=== PATIENT | male | born 1940 | race Caucasian/White ===

== ENCOUNTER 2020-07-18 11:46 | Inpatient (IN) | payer MEDICARE, SELFPAY ==
[2020-07-18] VITALS (19 sets, daily range): BP systolic 145–187; BP diastolic 89–113; PULSE 99–115; RESP 14–28; TEMP 35.1–36.4; O2SAT 85–99; BMI 14.8
--- NOTE | ~2020-07-18 | XR_ITS ---
EXAMINATION: XR CHEST CLINICAL INFORMATION: Shortness of breath COMPARISON: Previous chest x-ray March 2018 TECHNIQUE: Frontal view of the chest was obtained. FINDINGS: The cardiac and mediastinal contours are normal. The lungs are well inflated. There is increased density in the right lateral midlung. It is uncertain whether this is related to overlying soft tissues or could represent an area of faint airspace disease or pneumonitis. The lungs are otherwise clear. There is blunting of both costophrenic angles similar to previous exam probably representing chronic pleural thickening. There is no definite pleural effusion. There is no pneumothorax. There are degenerative changes of the spine. XR/XR chest 1V IMPRESSION: Hyperinflation. Increased density in the peripheral right mid lung, question representing overlying soft tissues versus a pneumonitis or small pneumonia.
--- NOTE | 2020-07-18 12:00 | ECG_ITS ---
Test Reason : SOB Blood Pressure : / mmHG Vent. Rate : 126 BPM Atrial Rate : 100 BPM P-R Int : 162 ms QRS Dur : 104 ms QT Int : 372 ms P-R-T Axes : 097 097 030 degrees QTc Int : 538 ms Artifact in tracing Normal sinus rhythm Right atrial enlargement Rightward axis Pulmonary disease pattern Abnormal ECG When compared with ECG of 11-APR-2018 09:32, No significant changes seen Referred By: Kenya Lilly Electronically Signed By:TIGRE MINOR
[2020-07-18] MEDS: Albuterol Sulfate (0.083%) 2.5 MG/3 ML VIAL.NEB 10 MG INHALE (12:02)
[2020-07-18] MEDS: methylPREDNISolone Sod Succ 125 MG/2 ML VIAL IVPUSH (12:16)
[2020-07-18] MEDS: Magnesium Sulfate/H2O 2 GM/50 ML PIGGYBACK IV (12:16)
--- NOTE | 2020-07-18 12:25 | ED_ITS ---
HPI - SOB/Dyspnea General Chief Complaint: Dyspnea Stated Complaint: sob Time Seen by Provider: 07/18/20 11:57 Source: patient and EMS Mode of arrival: EMS Limitations: no limitations History of Present Illness HPI Narrative: This is a 80-year-old male came in by EMS for evaluation of severe shortness of breath and possible COPD exacerbation. Patient with history of COPD using 3 L of supplemental oxygen at home 08/10, patient started to have shortness of breath earlier today and gradually gotten worse despite using his own medication at home, called 911 on EMS arrival at the scene patient was with work of breathing, O2 sat was in the 80s%, patient was given DuoNeb and 125 mg of Solu-Medrol by EMS with partial but temporary improvement of patient's symptoms, on arrival patient was moved to the ED stretcher when he started to have another exacerbation of shortness of breath, patient was talking in a few word sentences, in apparent respiratory distress. Patient is a former smoker Patient had this episode multiple times in the past according to the patient he required no intubations in the past. Confirm to no exposure to sick contacts or exposure to COVID infection, no recent travel, no lower extremity swelling, no history of PE/DVT. MD elicited complaint: shortness of breath Pertinent past history: COPD Onset (ago): hour(s) (5) Timing: intermittent and progressively worsening Severity: severe Exacerbating factors: nothing Relieving factors: other Known history of: COPD Related Data Home Medications Medication Instructions Recorded Confirmed fluticasone propion-salmeterol 1 inh INHALATION BID 07/18/20 07/18/20 [Wixela Inhub] tiotropium bromide [Spiriva with 1 cap INHALATION DAILY 07/18/20 07/18/20 HandiHaler] Allergies Allergy/AdvReac Type Severity Reaction Status Date / Time No Known Allergies Allergy Verified 07/18/20 11:53 [No Known Allergies*] Review of Systems Review of Systems: All other systems are reviewed and are negative Constitutional: Reports as per HPI and Reports no additional constitutional complaints Eyes: Reports as per HPI and Reports no additional eye complaints Reports system reviewed and no additional complaints, except as documented Cardiovascular: Reports as per HPI and Reports no additional cardiovascular complaints Respiratory: Reports as per HPI and Reports no additional respiratory complaints Gastrointestinal: Reports as per HPI and Reports no additional gastrointestinal complaints Genitourinary: Reports no additional female genitourinary complaints Musculoskeletal: Reports no additional musculoskeletal complaints Skin/Breast: Reports system reviewed and no additional complaints, except as docu Psychiatric: Reports no additional psychiatric complaints Endocrine: Reports no additional endocrine complaints Hematologic/Lymphatic: Reports no additional hematologic/lymphatic complaints Allergic/Immunologic: Reports no additional allergic/immunologic complaints Reports system reviewed and no additional complaints, except as documented and Reports Abnormal speech present [facility] Past Medical History Medical History COPD (chronic obstructive pulmonary disease) Inguinal hernia Social History Social History Smoking Status: Former smoker Advance Directives: No Advance Directives Information Provided: Yes Physical Exam Vital Signs: Vital Signs: Last Vital Signs Temp 97.6 F 07/18/20 11:54 Pulse 114 H 07/18/20 13:58 Resp 16 07/18/20 13:58 BP 163/108 H 07/18/20 13:58 Pulse Ox 91 L 07/18/20 13:58 Oxygen Flow Rate 4 07/18/20 11:54 Body Mass Index 14.8 Vital signs have been reviewed as appeared to be correct. Blood pressure elevated. Heart rate normal. Respiration rate elevated. Temperature normal. Oxygen saturation normal. Appearance: Alert. Oriented X3. Pain acute respiratory distress. Head: Normal external exam. Normocephalic. Atraumatic. No Weiner signs noted. No raccoon eyes noted Eyes: PERRLA. EOMI. Conjunctiva and sclera normal. Eyelids normal. ENT: TM's Normal. Pharynx normal. Uvula midline. Moist mucous membranes. No trismus noted. No drooling noted. No muffled voice noted. Neck: Normal inspection. Neck supple. FROM. No adenopathy. Thyroid Normal. No meningeal signs. No neck mass noted. CVS: Normal heart rate and rhythm. Heart sound normal. No murmurs noted. Pulses normal throughout. Respiratory: Mild to moderate acute respiratory distress, with intercostal retraction, diffuse decrease breathing sound bilaterally, diffuse expiratory wheezing. Abdomen: Soft and nontender. Bowel sounds normal in all 4 quadrants. No distention noted. No organomegaly noted. No visible injury noted. Back: No CVA tenderness. Full range of motion noted. Skin: Skin warm and dry. Normal skin color. Normal skin turgor. No rashes/lesions/lacerations noted. Extremities: No lower extremity edema. Extremities exhibit normal range of motion. Extremities nontender. Neuro: Oriented X 3. No motor deficit. No sensory deficit. Reflexes normal. Course Course Course Narrative: 80-year-old male with history of COPD came in with COPD exacerbation and hypoxia, several bronchodilator via neb was tried and Solu- Medrol with magnesium with no improvement patient still appearing in respiratory distress will try BiPAP. Will start on empiric antibiotics ceftriaxone and Zithromax. Reevaluation(s) Reevaluation #1: Patient on BiPAP machine, appear more stable and less respiratory distress, will consider ICU admission. Time: 14:01 MDM - SOB/Dyspnea Lab Data Attestation: I reviewed the patient's lab results. Result diagrams: 07/18/20 13:06 07/18/20 13:06 Labs: Lab Results 07/18/20 07/18/20 07/18/20 Range/Units 12:28 13:06 13:06 WBC 7.4 (4.8-10.8) X10*3/uL RBC 4.27 L (4.60-5.80) X10*6/uL Hgb 13.0 L (14.0-18.0) g/dl Hct 39.2 L (42-52) % MCV 91.8 (80-98) fL MCH 30.4 (27.0-33.0) pg MCHC 33.2 (31.0-36.0) g/dl RDW 13.2 (11.0-16.0) % Plt Count 365 (160-400) X10*3/uL MPV 9.7 (9.4-12.4) fL Immature Gran % (Auto) 0.3 (0.0-0.4) % Neut % (Auto) 80.4 H (45-73) % Lymph % (Auto) 11.4 L (20-40) % [place] % (Auto) 7.6 (2-11) % Eos % (Auto) 0.0 (0-4) % Baso % (Auto) 0.3 (0-2) % Lymph # (Auto) 0.8 L (1.2-4.9) X10*3/uL [place] # (Auto) 0.6 (0.1-1.2) X10*3/uL Eos # (Auto) 0.0 (0.0-0.4) X10*3/uL Baso # (Auto) 0.0 (0.0-0.2) X10*3/uL Abs Immat Gran (auto) 0.02 (0.00-0.03) X10*3/uL Absolute Neuts (auto) 5.9 (2.0-8.3) X10*3/uL Absolute Nucleated RBC 0.000 (0.0-0.012) X10*3/uL Nucleated RBC % (auto) 0.0 (0.0-0.2) /100WBC O2 Saturation 99.0 % ABG pH at Pt Temp 7.34 L (7.35-7.45) ABG pH (Temp Correct) 7.35 (7.35-7.45) ABG pCO2 at Pt Temp 66 H* (32-45) mmHg ABG pCO2 (Temp Corrct 65 H* (32-45) mmHg ABG pO2 at Pt Temp 157 H (83-108) mmHg ABG pO2 (Temp Correct 153 H (83-108) ABG HCO3 36 H (22-26) mmol/L ABG Base Excess (Actual) 8.5 mmol/L Sodium 134 L (135-145) mmol/L Potassium 4.2 (3.3-5.1) mmol/L Chloride 92 L (96-108) mmol/L Carbon Dioxide 34 H (22-29) mmol/L Anion Gap 12 (12-20) BUN 17 H (9-16) mg/dL Creatinine 0.68 (0.5-1.4) mg/dL Estim Creat Clear Calc 56.5 Estimated GFR > 60 Random Glucose 122 H (60-115) mg/dL Lactic Acid (0.5-2.0) mmol/L Calcium 9.4 (8.4-10.2) mg/dL Total Bilirubin 0.6 (0.0-1.0) mg/dL Direct Bilirubin 0.2 (0.0-0.5) mg/dL AST 34 (5-37) U/L ALT 25 (0-40) U/L Alkaline Phosphatase 114 (39-117) U/L Troponin I High Sens (<3.5-35.0) ng/L B-Natriuretic Peptide (<100) pg/mL Total Protein 6.9 (6.5-8.0) g/dL Albumin 4.2 (3.5-5.0) g/dL Lipase 17 (8-78) U/L 07/18/20 07/18/20 Range/Units 13:06 13:06 WBC (4.8-10.8) X10*3/uL RBC (4.60-5.80) X10*6/uL Hgb (14.0-18.0) g/dl Hct (42-52) % MCV (80-98) fL MCH (27.0-33.0) pg MCHC (31.0-36.0) g/dl RDW (11.0-16.0) % Plt Count (160-400) X10*3/uL MPV (9.4-12.4) fL Immature Gran % (Auto) (0.0-0.4) % Neut % (Auto) (45-73) % Lymph % (Auto) (20-40) % [place] % (Auto) (2-11) % Eos % (Auto) (0-4) % Baso % (Auto) (0-2) % Lymph # (Auto) (1.2-4.9) X10*3/uL [place] # (Auto) (0.1-1.2) X10*3/uL Eos # (Auto) (0.0-0.4) X10*3/uL Baso # (Auto) (0.0-0.2) X10*3/uL Abs Immat Gran (auto) (0.00-0.03) X10*3/uL Absolute Neuts (auto) (2.0-8.3) X10*3/uL Absolute Nucleated RBC (0.0-0.012) X10*3/uL Nucleated RBC % (auto) (0.0-0.2) /100WBC O2 Saturation % ABG pH at Pt Temp (7.35-7.45) ABG pH (Temp Correct) (7.35-7.45) ABG pCO2 at Pt Temp (32-45) mmHg ABG pCO2 (Temp Corrct (32-45) mmHg ABG pO2 at Pt Temp (83-108) mmHg ABG pO2 (Temp Correct (83-108) ABG HCO3 (22-26) mmol/L ABG Base Excess (Actual) mmol/L Sodium (135-145) mmol/L Potassium (3.3-5.1) mmol/L Chloride (96-108) mmol/L Carbon Dioxide (22-29) mmol/L Anion Gap (12-20) BUN (9-16) mg/dL Creatinine (0.5-1.4) mg/dL Estim Creat Clear Calc Estimated GFR Random Glucose (60-115) mg/dL Lactic Acid 1.1 (0.5-2.0) mmol/L Calcium (8.4-10.2) mg/dL Total Bilirubin (0.0-1.0) mg/dL Direct Bilirubin (0.0-0.5) mg/dL AST (5-37) U/L ALT (0-40) U/L Alkaline Phosphatase (39-117) U/L Troponin I High Sens < 3.5 (<3.5-35.0) ng/L B-Natriuretic Peptide 57 (<100) pg/mL Total Protein (6.5-8.0) g/dL Albumin (3.5-5.0) g/dL Lipase (8-78) U/L Imaging Data Chest x-ray: Radiologist's impression: Hyperinflation. Increased density in the peripheral right mid lung, question representing overlying soft tissues versus a pneumonitis or small pneumonia. Critical Care Time Critical Care Time Critical Care Time: Yes Total Critical Care Time: 60 Attestation: I spent 60 minutes providing critical care service to the patient, this including time spent at the bedside to evaluate the patient, reassess the patient, monitoring vital signs, review labs, and radiographic studies, counseling the patient/family, discussing the case with consultants, disposition the patient. Discharge Plan Discharge Clinical Impression: Acute exacerbation of chronic obstructive airways disease, Hypoxia Patient Disposition: Admitted As Inpatient
[2020-07-18 12:37] LABS: ABG Refer to POC result
[2020-07-18 12:37] LABS: ABG Base Excess 8.5 mmol/L; ABG HCO3 36 mmol/L (22-26); ABG pCO2 66 mmHg (32-45); ABG pCO2 TC 65 mmHg (32-45); ABG pH 7.34 (7.35-7.45); ABG pH TC 7.35 (7.35-7.45); ABG pO2 157 mmHg (83-108); ABG pO2 TC 153 (83-108)
[2020-07-18 13:14] LABS: MANUAL DIFF FLAG NO
[2020-07-18 13:20] LABS: Basophils Percent Auto 0.3 % (0-2); Hematocrit 39.2 % (42-52); Imm Gran Abs Auto 0.02 X10*3/uL (0.00-0.03); Imm Gran Pct Auto 0.3 % (0.0-0.4); Lymphocytes Absolute Auto 0.8 X10*3/uL (1.2-4.9); Lymphocytes Percent Auto 11.4 % (20-40); Mean Corpuscular HGB Conc 33.2 g/dl (31.0-36.0); Mean Corpuscular Hemoglobin 30.4 pg (27.0-33.0); Mean Corpuscular Volume 91.8 fL (80-98); Mean Platelet Volume 9.7 fL (9.4-12.4); Monocytes Absolute Auto 0.6 X10*3/uL (0.1-1.2); Monocytes Percent Auto 7.6 % (2-11); Neutrophils Absolute Auto 5.9 X10*3/uL (2.0-8.3); Neutrophils Percent Auto 80.4 % (45-73); Platelet Count 365 X10*3/uL (160-400); Red Blood Count 4.27 X10*6/uL (4.60-5.80); Red Cell Distribution Width 13.2 % (11.0-16.0); White Blood Count 7.4 X10*3/uL (4.8-10.8)
[2020-07-18 13:38] LABS: Lactic Acid 1.1 mmol/L (0.5-2.0)
[2020-07-18 13:42] LABS: Alanine Aminotransferase 25 U/L (0-40); Albumin Level 4.2 g/dL (3.5-5.0); Alkaline Phosphatase 114 U/L (39-117); Anion Gap 12 (12-20); Aspartate Amino Transferase 34 U/L (5-37); Bilirubin Direct 0.2 mg/dL (0.0-0.5); Bilirubin Total 0.6 mg/dL (0.0-1.0); Blood Urea Nitrogen 17 mg/dL (9-16); Calcium 9.4 mg/dL (8.4-10.2); Carbon Dioxide 34 mmol/L (22-29); Chloride 92 mmol/L (96-108); Creatinine Clr Calc Pharmacy 56.5; Estimated Glomerular Filt Rate > 60; Glucose Random 122 mg/dL (60-115); Lipase 17 U/L (8-78); Potassium 4.2 mmol/L (3.3-5.1); Sodium 134 mmol/L (135-145); Total Protein 6.9 g/dL (6.5-8.0)
[2020-07-18 13:49] LABS: B Type Natriuretic Peptide 57 pg/mL (<100); Troponin-I High Sensitivity < 3.5 ng/L (<3.5-35.0)
[2020-07-18 14:15] LABS: COVID-19 Test Negative (Negative); IDNOW Serial# 08D9AD1C
--- NOTE | 2020-07-18 14:15 | PC.NURSE ---
Pt alert and oriented, skin pink, warm, dry. Pt on 25% Bipap, O2 sat 95%. Use of accessory muscles with breathing. 2+ Bilateral foot edema. Pt on 2L O2 NC at home. Pt awaiting labs at this time.
[2020-07-18 14:25] LABS: Glucose Urine UA NEG (NEG); Leukocyte Esterase Urine NEG (NEG); Nitrite Urine NEG (NEG); Urine Blood NEG (NEG); Urine Ketones NEG (NEG); Urine Protein NEG (NEG-TRACE)
[2020-07-18 14:27] LABS: Appearance Urine CLEAR; Color Urine YELLOW
[2020-07-18] MEDS: cefTRIAXone sodium 1 GM in 0.9 % Sodium Chloride 50 ML IV (15:00)
[2020-07-18] MEDS: 0.9 % Sodium Chloride 1,000 ML 999 ML IVCONT (15:01)
[2020-07-18] MEDS: Azithromycin 500 MG TABLET PO (15:05)
--- NOTE | 2020-07-18 15:05 | PM.CCHP ---
History of Present Illness Date of Service: 07/18/20 Chief Complaint: Dyspnea 80-year-old male former smoker and inhaler dependent COPD with increased work of breathing chest tightness and possible chills COVID negative but never vaccinated No cardiovascular history not treated for hypertension Currently on BiPAP and tolerating comfortably but still feels that work of breathing is excessive with sinus tachycardia at rate 114 acute hypertension at 163/108 but when he presented by blood gas he was an acute on chronic hypoxic and hypercarbic respiratory failure and chest x-ray with very severe bilateral COPD and EKG showing right axis with right atrial dilatation and clockwise rotation consistent with probable predominant right right ventricular dysfunction Review of Systems Review of Systems: Yes all other systems are reviewed and are negative [facility] Past Medical History Medical History COPD (chronic obstructive pulmonary disease) Inguinal hernia Social History Social History Smoking Status: Former smoker Advance Directives: No Advance Directives Information Provided: Yes Meds Allergies Allergy/AdvReac Type Severity Reaction Status Date / Time No Known Allergies Allergy Verified 07/18/20 11:53 [No Known Allergies*] Active Medications: Current Medications Generic Name Dose Route Start Last Admin Trade Name Freq PRN Reason Stop Dose Admin Albuterol/Ipratropium 3 ml 07/18/20 15:00 Albuterol/Iprat 2.5/0.5mg 3 Ml Ampul.Neb INHALE 6XD [facility] Sodium Chloride 1,000 mls @ 999 mls/hr 07/18/20 14:15 07/18/20 15:01 Ns IVCONT 07/18/20 15:15 999 mls/hr .Q1H1M [facility] Administration Doxycycline Hyclate 100 mg/ 250 mls @ 166.67 mls/hr 07/18/20 16:30 Sodium Chloride IV BID@0630,1630 [facility] Ceftriaxone Sodium 1 gm/ 50 mls @ 100 mls/hr 07/18/20 15:00 Sodium Chloride IV Q12H [facility] Methylprednisolone Sodium Succinate 40 mg 07/18/20 17:00 Methylprednisolone Sod Succ 40 Mg/Ml Vial IVPUSH QID [facility] Pharmacy Consult 1 each 07/18/20 11:59 Consult Rx Perform Med Rec MISCELLANE ONCE PRN Consult order Home Medications Medication Instructions Recorded Confirmed Last Taken Type fluticasone propion-salmeterol 1 inh INHALATION BID 07/18/20 07/18/20 Unknown History [Wixela Inhub] tiotropium bromide [Spiriva with 1 cap INHALATION DAILY 07/18/20 07/18/20 Unknown History HandiHaler] Physical Exam Vital Signs: Vital Signs: Last Vital Signs Temp 97.6 F 07/18/20 11:54 Pulse 114 H 07/18/20 13:58 Resp 16 07/18/20 13:58 BP 163/108 H 07/18/20 13:58 Pulse Ox 91 L 07/18/20 13:58 Oxygen Flow Rate 4 07/18/20 11:54 Body Mass Index 14.8 Currently mild respiratory distress without accessory muscle use Awake and alert hard of hearing but oriented nonfocal neurologically Bedside echo showing mild aortic valvular sclerosis but no stenosis globally normal systolic wall motion of the left ventricle mild right ventricular dilatation borderline inferior vena cava with less than 50% inspiratory collapse Abdomen benign Chest wall deformity with considerable pectus Results Labs CBC and Chem 7: 07/18/20 13:06 07/18/20 13:06 Labs: Laboratory Results - last 24 hr 07/18/20 07/18/20 07/18/20 12:28 13:06 13:06 MCV 91.8 MCH 30.4 MCHC 33.2 RDW 13.2 Plt Count 365 MPV 9.7 Immature Gran % (Auto) 0.3 Neut % (Auto) 80.4 H Lymph % (Auto) 11.4 L [place] % (Auto) 7.6 Eos % (Auto) 0.0 Baso % (Auto) 0.3 Lymph # (Auto) 0.8 L [place] # (Auto) 0.6 Eos # (Auto) 0.0 Baso # (Auto) 0.0 Abs Immat Gran (auto) 0.02 Absolute Neuts (auto) 5.9 Absolute Nucleated RBC 0.000 Nucleated RBC % (auto) 0.0 O2 Saturation 99.0 ABG pH at Pt Temp 7.34 L ABG pH (Temp Correct) 7.35 ABG pCO2 at Pt Temp 66 H* ABG pCO2 (Temp Corrct 65 H* ABG pO2 at Pt Temp 157 H ABG pO2 (Temp Correct 153 H ABG HCO3 36 H ABG Base Excess (Actual) 8.5 Anion Gap 12 Estim Creat Clear Calc 56.5 Estimated GFR > 60 Random Glucose 122 H Lactic Acid Calcium 9.4 Total Bilirubin 0.6 Direct Bilirubin 0.2 AST 34 ALT 25 Alkaline Phosphatase 114 Troponin I High Sens B-Natriuretic Peptide Total Protein 6.9 Albumin 4.2 Lipase 17 Urine Color Urine Appearance Urine pH Ur Specific [place] Urine Protein Urine Glucose (UA) Urine Ketones Urine Blood Urine Nitrite Ur Leukocyte Esterase COVID-19 ([facility]ANDY) COVID-19 Clin Com 07/18/20 07/18/20 07/18/20 13:06 13:06 13:06 MCV MCH MCHC RDW Plt Count MPV Immature Gran % (Auto) Neut % (Auto) Lymph % (Auto) [place] % (Auto) Eos % (Auto) Baso % (Auto) Lymph # (Auto) [place] # (Auto) Eos # (Auto) Baso # (Auto) Abs Immat Gran (auto) Absolute Neuts (auto) Absolute Nucleated RBC Nucleated RBC % (auto) O2 Saturation ABG pH at Pt Temp ABG pH (Temp Correct) ABG pCO2 at Pt Temp ABG pCO2 (Temp Corrct ABG pO2 at Pt Temp ABG pO2 (Temp Correct ABG HCO3 ABG Base Excess (Actual) Anion Gap Estim Creat Clear Calc Estimated GFR Random Glucose Lactic Acid 1.1 Calcium Total Bilirubin Direct Bilirubin AST ALT Alkaline Phosphatase Troponin I High Sens < 3.5 B-Natriuretic Peptide 57 Total Protein Albumin Lipase Urine Color Urine Appearance Urine pH Ur Specific [place] Urine Protein Urine Glucose (UA) Urine Ketones Urine Blood Urine Nitrite Ur Leukocyte Esterase COVID-19 ([facility]ANDY) Negative COVID-19 Clin Com See Note 07/18/20 14:14 MCV MCH MCHC RDW Plt Count MPV Immature Gran % (Auto) Neut % (Auto) Lymph % (Auto) [place] % (Auto) Eos % (Auto) Baso % (Auto) Lymph # (Auto) [place] # (Auto) Eos # (Auto) Baso # (Auto) Abs Immat Gran (auto) Absolute Neuts (auto) Absolute Nucleated RBC Nucleated RBC % (auto) O2 Saturation ABG pH at Pt Temp ABG pH (Temp Correct) ABG pCO2 at Pt Temp ABG pCO2 (Temp Corrct ABG pO2 at Pt Temp ABG pO2 (Temp Correct ABG HCO3 ABG Base Excess (Actual) Anion Gap Estim Creat Clear Calc Estimated GFR Random Glucose Lactic Acid Calcium Total Bilirubin Direct Bilirubin AST ALT Alkaline Phosphatase Troponin I High Sens B-Natriuretic Peptide Total Protein Albumin Lipase Urine Color YELLOW Urine Appearance CLEAR Urine pH 7.0 Ur Specific [place] 1.020 Urine Protein NEG Urine Glucose (UA) NEG Urine Ketones NEG Urine Blood NEG Urine Nitrite NEG Ur Leukocyte Esterase NEG COVID-19 ([facility]Y) COVID-19 Clin Com Imaging Radiologist's Impressions: Impressions Chest X-Ray 07/18/20 11:59 IMPRESSION: Hyperinflation. Increased density in the peripheral right mid lung, question representing overlying soft tissues versus a pneumonitis or small pneumonia. Assessment and Plan (1) Acute exacerbation of chronic obstructive airways disease: Status: Acute (2) Acute on chronic respiratory failure with hypoxia and hypercapnia: Status: Acute Will maintain BiPAP and combination of steroids as well as inhaled bronchodilators cover him for community-acquired infection to include doxycycline
[2020-07-18] MEDS: Albuterol/Iprat 2.5/0.5MG 3 ML AMPUL.NEB INHALE ×2 (15:18→20:14)
--- NOTE | 2020-07-18 15:31 | PC.NURSE ---
RT at bedside pt taken off BIPAP and back on 3lpm via nc (baseline home 02 amt) and sat up to 97%, receiving updraft at this time. Medicated as charted. Work of breathing increases with any exertion.
[2020-07-18] MEDS: Heparin Sodium,Porcine 5,000 UNIT/ML VIAL 5000 UNIT SUBCUT ×2 (17:19→23:50)
[2020-07-18] MEDS: Doxycycline Hyclate 100 MG in 0.9 % Sodium Chloride 250 ML 166.67 MG IV (17:22)
[2020-07-18] MEDS: Dextrose 5 % and Lactated Ring 1,000 ML 50 ML IVCONT (19:54)
[2020-07-18] MEDS: fentaNYL citrate/PF 100 MCG/2 ML VIAL 50 MCG IVPUSH ×2 (19:55→23:50)
[2020-07-18] MEDS: methylPREDNISolone Sod Succ 40 MG/ML VIAL IVPUSH (20:01)
[2020-07-18] MEDS: Famotidine/PF 20 MG/2 ML VIAL IVPUSH (20:01)
[2020-07-18 21:58] LABS: VBG Base Excess 5.4 mmol/L; VBG HCO3 33 mmol/L (22-26); VBG pCO2 61 mmHg; VBG pH 7.33 (7.32-7.43); VBG pO2 37 mmHg
[2020-07-18 22:01] LABS: Venous Blood Gas Refer to POC result
[2020-07-19] VITALS (30 sets, daily range): BP systolic 115–184; BP diastolic 69–109; PULSE 91–112; RESP 10–25; TEMP 35.6–36.7; O2SAT 88–100; BMI 16.2
[2020-07-19] MEDS: Albuterol/Iprat 2.5/0.5MG 3 ML AMPUL.NEB INHALE ×6 (00:45→19:29)
[2020-07-19] MEDS: cefTRIAXone sodium 1 GM in 0.9 % Sodium Chloride 50 ML IV ×2 (02:17→14:09)
[2020-07-19] MEDS: fentaNYL citrate/PF 100 MCG/2 ML VIAL 50 MCG IVPUSH ×2 (02:29→05:24)
[2020-07-19 05:16] LABS: VBG Base Excess 6.9 mmol/L; VBG HCO3 32 mmol/L (22-26); VBG pCO2 51 mmHg; VBG pH 7.41 (7.32-7.43); VBG pO2 46 mmHg
[2020-07-19] MEDS: Doxycycline Hyclate 100 MG in 0.9 % Sodium Chloride 250 ML 166.67 MG IV ×2 (05:24→17:20)
[2020-07-19 05:26] LABS: Venous Blood Gas Refer to POC result
[2020-07-19 05:46] LABS: Hematocrit 36.1 % (42-52); Hemoglobin 12.1 g/dl (14.0-18.0); Imm Gran Abs Auto 0.02 X10*3/uL (0.00-0.03); Imm Gran Pct Auto 0.4 % (0.0-0.4); Lymphocytes Absolute Auto 0.4 X10*3/uL (1.2-4.9); Lymphocytes Percent Auto 7.4 % (20-40); MANUAL DIFF FLAG SCAN; Mean Corpuscular HGB Conc 33.5 g/dl (31.0-36.0); Mean Corpuscular Hemoglobin 30.6 pg (27.0-33.0); Mean Corpuscular Volume 91.4 fL (80-98); Monocytes Absolute Auto 0.3 X10*3/uL (0.1-1.2); Monocytes Percent Auto 6.2 % (2-11); Neutrophils Absolute Auto 4.4 X10*3/uL (2.0-8.3); Platelet Count 343 X10*3/uL (160-400); Red Blood Count 3.95 X10*6/uL (4.60-5.80); Red Cell Distribution Width 13.2 % (11.0-16.0); SCAN SMEAR FLAG 1; White Blood Count 5.1 X10*3/uL (4.8-10.8)
[2020-07-19 05:53] LABS: INTERNATIONAL NORM RATIO 1.1 (0.9-1.1); Prothrombin Time 12.7 SEC (10.8-13.0)
[2020-07-19 06:06] LABS: Partial Thromboplastin Time 58.2 SEC (24.1-38.0)
[2020-07-19 06:10] LABS: Anion Gap 11 (12-20); Blood Urea Nitrogen 18 mg/dL (9-16); Calcium 9.1 mg/dL (8.4-10.2); Carbon Dioxide 33 mmol/L (22-29); Chloride 96 mmol/L (96-108); Creatinine Clr Calc Pharmacy 55.6; Estimated Glomerular Filt Rate > 60; Glucose Random 141 mg/dL (60-115); Magnesium 2.1 mg/dL (1.6-2.6); Phosphorus 3.9 mg/dL (2.7-4.5); Potassium 4.6 mmol/L (3.3-5.1); Sodium 135 mmol/L (135-145)
--- NOTE | 2020-07-19 06:15 | PC.NURSE ---
Pt sbp ranging from 140s-170s; asymptomatic-PA aware, VSS. Pt alert and oriented x 3, able to make needs known. P tolerating bipap well, fio2 titrated up to 40%, prn fentanyl given per emar for increased wob. Pt using urinal, SR/ST on tele. Redness noted on coccyx, barrier cream applied, repo q2hr with occasional assistance, prevalon mattress used.
[2020-07-19 07:20] LABS: SLIDE REVIEW VERIFIED
[2020-07-19] MEDS: methylPREDNISolone Sod Succ 40 MG/ML VIAL IVPUSH ×4 (08:25→21:12)
[2020-07-19] MEDS: Heparin Sodium,Porcine 5,000 UNIT/ML VIAL 5000 UNIT SUBCUT ×3 (08:25→22:44)
[2020-07-19] MEDS: Famotidine/PF 20 MG/2 ML VIAL IVPUSH ×2 (08:25→21:12)
[2020-07-19 10:20] LABS: Venous Blood Gas Refer to POC result
--- NOTE | 2020-07-19 11:44 | MHC.CLN ---
RE: CONSULT PT IS MODERATELY MALNOURISHED PT WITH MILDLY DEPLETED SUBCUTANEOUS FAT WITH MODERATELY DEPLETED MUSCLE MASS, BMI 16 WT TYPICALLY BELOW IBW RANGE PER PT; NO SIGNIFICANT WT CHANGE DIET RX: REGULAR-APPROPRIATE PT IS EATING AND PLACING ORDER WITH GSR UPON INTERVIEW RECOMMEND ADDING ENSURE BID (PT PREFERS VANILLA) TO INCREASE KCALS SUPPLEMENT TO PROVIDE 700KCALS, 40G PROTEIN SEE ALSO CLINICAL NUTRITION ASSESSMENT
--- NOTE | 2020-07-19 11:45 | P.PNCC_ITS ---
Subjective Subjective Date of Service: 07/19/20 Interval History: 80-year-old male with background history of COPD presented with dyspnea and acute on chronic hypercarbic and hypoxic respiratory failure requiring BiPAP support overnight while we administered aggressive bronchodilator therapy steroids and empiric antibiotic coverage new no for community-acquired infection but no apparent infiltrate on chest x-ray My bedside echo showed globally normal systolic wall motion of the left ve ntricle and no primary valve or pericardial disease Physical Exam Vital Signs: Vital Signs: Last Vital Signs Temp 97.5 F 07/19/20 08:00 Pulse 91 07/19/20 10:51 Resp 24 H 07/19/20 11:11 BP 134/86 07/19/20 10:51 Pulse Ox 99 07/19/20 10:51 Oxygen Flow Rate 4 07/18/20 11:54 Body Mass Index 16.2 Const: Other: Much improved work of breathing and he is awake and alert and oriented and nonfocal neurologically Significant pectus with diminished breath sounds bilaterally but no accessory muscle requirement Abdomen benign no organomegaly Cardiac exam no neck vein distension and good bilateral carotid upstrokes and no gallops Objective Data Labs CBC & Chem 7: 07/19/20 05:06 07/19/20 05:06 Labs: Laboratory Results - last 24 hr 07/18/20 07/18/20 07/18/20 12:28 13:06 13:06 WBC 7.4 RBC 4.27 L Hgb 13.0 L Hct 39.2 L MCV 91.8 MCH 30.4 MCHC 33.2 RDW 13.2 Plt Count 365 MPV 9.7 Immature Gran % (Auto) 0.3 Neut % (Auto) 80.4 H Lymph % (Auto) 11.4 L [place] % (Auto) 7.6 Eos % (Auto) 0.0 Baso % (Auto) 0.3 Lymph # (Auto) 0.8 L [place] # (Auto) 0.6 Eos # (Auto) 0.0 Baso # (Auto) 0.0 Abs Immat Gran (auto) 0.02 Absolute Neuts (auto) 5.9 Absolute Nucleated RBC 0.000 Nucleated RBC % (auto) 0.0 Smear Tech's Comments PT INR APTT O2 Saturation 99.0 ABG pH at Pt Temp 7.34 L ABG pH (Temp Correct) 7.35 ABG pCO2 at Pt Temp 66 H* ABG pCO2 (Temp Corrct 65 H* ABG pO2 at Pt Temp 157 H ABG pO2 (Temp Correct 153 H ABG HCO3 36 H ABG Base Excess (Actual) 8.5 VBG pH VBG pCO2 VBG pO2 VBG HCO3 VBG O2 Saturation VBG Base Excess Sodium 134 L Potassium 4.2 Chloride 92 L Carbon Dioxide 34 H Anion Gap 12 BUN 17 H Creatinine 0.68 Estim Creat Clear Calc 56.5 Estimated GFR > 60 Random Glucose 122 H Lactic Acid Calcium 9.4 Phosphorus Magnesium Total Bilirubin 0.6 Direct Bilirubin 0.2 AST 34 ALT 25 Alkaline Phosphatase 114 Troponin I High Sens B-Natriuretic Peptide Total Protein 6.9 Albumin 4.2 Lipase 17 Urine Color Urine Appearance Urine pH Ur Specific [place] Urine Protein Urine Glucose (UA) Urine Ketones Urine Blood Urine Nitrite Ur Leukocyte Esterase COVID-19 (RANDY) COVID-[place] 07/18/20 07/18/20 07/18/20 13:06 13:06 13:06 WBC RBC Hgb Hct MCV MCH MCHC RDW Plt Count MPV Immature Gran % (Auto) Neut % (Auto) Lymph % (Auto) [place] % (Auto) Eos % (Auto) Baso % (Auto) Lymph # (Auto) [place] # (Auto) Eos # (Auto) Baso # (Auto) Abs Immat Gran (auto) Absolute Neuts (auto) Absolute Nucleated RBC Nucleated RBC % (auto) Smear Tech's Comments PT INR APTT O2 Saturation ABG pH at Pt Temp ABG pH (Temp Correct) ABG pCO2 at Pt Temp ABG pCO2 (Temp Corrct ABG pO2 at Pt Temp ABG pO2 (Temp Correct ABG HCO3 ABG Base Excess (Actual) VBG pH VBG pCO2 VBG pO2 VBG HCO3 VBG O2 Saturation VBG Base Excess Sodium Potassium Chloride Carbon Dioxide Anion Gap BUN Creatinine Estim Creat Clear Calc Estimated GFR Random Glucose Lactic Acid 1.1 Calcium Phosphorus Magnesium Total Bilirubin Direct Bilirubin AST ALT Alkaline Phosphatase Troponin I High Sens < 3.5 B-Natriuretic Peptide 57 Total Protein Albumin Lipase Urine Color Urine Appearance Urine pH Ur Specific [place] Urine Protein Urine Glucose (UA) Urine Ketones Urine Blood Urine Nitrite Ur Leukocyte Esterase COVID-19 (RANDY) Negative COVID-19 Convozine Com See Note 07/18/20 07/18/20 07/19/20 14:14 21:52 05:06 WBC 5.1 RBC 3.95 L Hgb 12.1 L Hct 36.1 L MCV 91.4 MCH 30.6 MCHC 33.5 RDW 13.2 Plt Count 343 MPV 10.0 Immature Gran % (Auto) 0.4 Neut % (Auto) 86.0 H Lymph % (Auto) 7.4 L [place] % (Auto) 6.2 Eos % (Auto) 0.0 Baso % (Auto) 0.0 Lymph # (Auto) 0.4 L [place] # (Auto) 0.3 Eos # (Auto) 0.0 Baso # (Auto) 0.0 Abs Immat Gran (auto) 0.02 Absolute Neuts (auto) 4.4 Absolute Nucleated RBC 0.000 Nucleated RBC % (auto) 0.0 Smear Tech's Comments VERIFIED PT INR APTT O2 Saturation ABG pH at Pt Temp ABG pH (Temp Correct) ABG pCO2 at Pt Temp ABG pCO2 (Temp Corrct ABG pO2 at Pt Temp ABG pO2 (Temp Correct ABG HCO3 ABG Base Excess (Actual) VBG pH 7.33 VBG pCO2 61 VBG pO2 37 VBG HCO3 33 H VBG O2 Saturation 58.0 VBG Base Excess 5.4 Sodium Potassium Chloride Carbon Dioxide Anion Gap BUN Creatinine Estim Creat Clear Calc Estimated GFR Random Glucose Lactic Acid Calcium Phosphorus Magnesium Total Bilirubin Direct Bilirubin AST ALT Alkaline Phosphatase Troponin I High Sens B-Natriuretic Peptide Total Protein Albumin Lipase Urine Color YELLOW Urine Appearance CLEAR Urine pH 7.0 Ur Specific [place] 1.020 Urine Protein NEG Urine Glucose (UA) NEG Urine Ketones NEG Urine Blood NEG Urine Nitrite NEG Ur Leukocyte Esterase NEG COVID-19 (RANDY) COVID-19 Clin Com 07/19/20 07/19/20 07/19/20 05:06 05:06 05:07 WBC RBC Hgb Hct MCV MCH MCHC RDW Plt Count MPV Immature Gran % (Auto) Neut % (Auto) Lymph % (Auto) [place] % (Auto) Eos % (Auto) Baso % (Auto) Lymph # (Auto) [place] # (Auto) Eos # (Auto) Baso # (Auto) Abs Immat Gran (auto) Absolute Neuts (auto) Absolute Nucleated RBC Nucleated RBC % (auto) Smear Tech's Comments PT 12.7 INR 1.1 APTT 58.2 H O2 Saturation ABG pH at Pt Temp ABG pH (Temp Correct) ABG pCO2 at Pt Temp ABG pCO2 (Temp Corrct ABG pO2 at Pt Temp ABG pO2 (Temp Correct ABG HCO3 ABG Base Excess (Actual) VBG pH 7.41 VBG pCO2 51 VBG pO2 46 VBG HCO3 32 H VBG O2 Saturation 76.0 VBG Base Excess 6.9 Sodium 135 Potassium 4.6 Chloride 96 Carbon Dioxide 33 H Anion Gap 11 L BUN 18 H Creatinine 0.69 Estim Creat Clear Calc 55.6 Estimated GFR > 60 Random Glucose 141 H Lactic Acid Calcium 9.1 Phosphorus 3.9 Magnesium 2.1 Total Bilirubin Direct Bilirubin AST ALT Alkaline Phosphatase Troponin I High Sens B-Natriuretic Peptide Total Protein Albumin Lipase Urine Color Urine Appearance Urine pH Ur Specific [place] Urine Protein Urine Glucose (UA) Urine Ketones Urine Blood Urine Nitrite Ur Leukocyte Esterase COVID-19 (RANDY) COVID-19 Clin Com 07/19/20 10:06 WBC RBC Hgb Hct MCV MCH MCHC RDW Plt Count MPV Immature Gran % (Auto) Neut % (Auto) Lymph % (Auto) [place] % (Auto) Eos % (Auto) Baso % (Auto) Lymph # (Auto) [place] # (Auto) Eos # (Auto) Baso # (Auto) Abs Immat Gran (auto) Absolute Neuts (auto) Absolute Nucleated RBC Nucleated RBC % (auto) Smear Tech's Comments PT INR APTT O2 Saturation 53.0 ABG pH at Pt Temp 7.39 ABG pH (Temp Correct) ABG pCO2 at Pt Temp 59 H ABG pCO2 (Temp Corrct ABG pO2 at Pt Temp 33 L* ABG pO2 (Temp Correct ABG HCO3 36 H ABG Base Excess (Actual) 9.6 VBG pH VBG pCO2 VBG pO2 VBG HCO3 VBG O2 Saturation VBG Base Excess Sodium Potassium Chloride Carbon Dioxide Anion Gap BUN Creatinine Estim Creat Clear Calc Estimated GFR Random Glucose Lactic Acid Calcium Phosphorus Magnesium Total Bilirubin Direct Bilirubin AST ALT Alkaline Phosphatase Troponin I High Sens B-Natriuretic Peptide Total Protein Albumin Lipase Urine Color Urine Appearance Urine pH Ur Specific [place] Urine Protein Urine Glucose (UA) Urine Ketones Urine Blood Urine Nitrite Ur Leukocyte Esterase COVID-19 (RANDY) COVID-19 Clin Com Progress Note: A&P Assessment and plan (1) Acute on chronic respiratory failure with hypoxia and hypercapnia: Status: Acute (2) Acute exacerbation of chronic obstructive airways disease: Status: Acute (3) Hypoxia: Status: Acute Assessment and Plan: Diet was started today and patient was wean to nasal high-flow at 40 liters/minute with the current pCO2 of 58 and compensated pH but my by my calculation he normally resides and at a pCO2 of 50-58 He might still need nocturnal BiPAP support for another day or so and probably should have a pulmonary consult for outpatient follow-up benefit
[2020-07-20] VITALS (13 sets, daily range): BP systolic 120–185; BP diastolic 65–102; PULSE 75–98; RESP 15–22; TEMP 36–36.9; O2SAT 91–100; BMI 35.8
[2020-07-20] MEDS: Albuterol/Iprat 2.5/0.5MG 3 ML AMPUL.NEB INHALE ×5 (01:05→20:09)
[2020-07-20] MEDS: cefTRIAXone sodium 1 GM in 0.9 % Sodium Chloride 50 ML IV ×2 (02:22→16:07)
[2020-07-20] MEDS: Heparin Sodium,Porcine 5,000 UNIT/ML VIAL 5000 UNIT SUBCUT ×2 (06:42→16:08)
[2020-07-20] MEDS: Doxycycline Hyclate 100 MG in 0.9 % Sodium Chloride 250 ML 250 MG IV ×2 (06:44→16:08)
[2020-07-20] MEDS: Famotidine/PF 20 MG/2 ML VIAL IVPUSH ×2 (08:30→20:38)
[2020-07-20] MEDS: methylPREDNISolone Sod Succ 40 MG/ML VIAL IVPUSH ×2 (08:30→20:38)
[2020-07-20 09:20] LABS: VBG Base Excess 9.6 mmol/L; VBG HCO3 36 mmol/L (22-26); VBG pCO2 59 mmHg; VBG pO2 33 mmHg
[2020-07-20 09:21] LABS: VBG pH 7.39 (7.32-7.43)
--- NOTE | 2020-07-20 09:27 | P.CONPL_ITS ---
History of Present Illness History of Present Illness Consult date: 07/20/20 Chief complaint: sob Narrative: This is a pulmonary consultation. The patient is a 80-year-old gentleman with a known history of tobacco smoke or weight about 18 years ago when he was diagnosed with COPD. He typically is on 3 L of oxygen supplementation continuously. The patient presents with worsening shortness of breath and hypoxia. Therefore decided to come into the ED for further evaluation there he was found to be very dyspneic and respiratory distress. His ABG demonstrated acute on chronic hypercarbic respiratory failure. He required BiPAP and transferred to the unit. He has been on BiPAP however still having some difficulty with breathing and is not improved dramatically. He still continues to have significant hypercarbia. On further evaluation he did have a CT scan of the chest back several years ago demonstrating extensive emphysema and some degree of scarring at that time. It is likely now continue to progress. The patient does carry a poor prognosis. Review of Systems Constitutional: Constitutional: Denies night sweats and Reports weight loss ENT: Denies change in voice, Denies lip swelling, Denies mouth pain, Reports nasal congestion, Reports nasal discharge and Denies tongue swelling Cardiovascular: Cardiovascular: Denies chest pain and Reports dyspnea Respiratory: Respiratory: Reports cough, Denies hemoptysis, Denies pain on inspiration and Reports dyspnea Gastrointestinal: Gastrointestinal: Denies abdominal pain Musculoskeletal: Musculoskeletal: Denies no additional musculoskeletal complaints Neurologic: Denies Neuro-related abnormal movements Psychiatric: Psychiatric: Denies no additional psychiatric complaints Hematologic/Lymphatic: Hematologic/Lymphatic: Denies easy bleeding and Denies lymphadenopathy Allergic/Immunologic: Allergic/Immunologic: Denies lip swelling and Denies tongue swelling PMF Past Medical History Medical History COPD (chronic obstructive pulmonary disease) Inguinal hernia Social History Social History Household Members: Significant Other Housing: House Smoking Status: Former smoker Use of substances other than those prescribed or required for medical reasons: No Currently Displaying Signs/Symptoms of Drug Intoxication Withdrawal: No Have you been hit, kicked, punched, or otherwise hurt by someone within the past year? If so, by whom?: No Do you feel safe in your current relationship?: Yes Is there a partner from a previous relationship who is making you feel unsafe now?: No Are you made to feel afraid or neglected: No Advance Directives: No Advance Directives Information Provided: Yes Do you have thoughts of harming others: None Do you have a plan to hurt others: No Plan Recently lost weight without trying: Unsure Nutrition Risks: No Nutritional Risk Poor oral hygiene: No Meds Allergies Allergy/AdvReac Type Severity Reaction Status Date / Time No Known Allergies Allergy Verified 07/18/20 11:53 [No Known Allergies*] Active Medications: Current Medications Generic Name Dose Route Start Last Admin Trade Name Freq PRN Reason Stop Dose Admin Albuterol/Ipratropium 3 ml 07/18/20 20:15 07/20/20 07:43 Albuterol/Iprat 2.5/0.5mg 3 Ml Ampul.Neb INHALE 3 ml RQ4H ALFREDO Administration Famotidine 20 mg 07/18/20 21:00 07/20/20 08:30 Famotidine/Pf 20 Mg/2 Ml Vial IVPUSH 20 mg BID ALFREDO Administration Heparin Sodium (Porcine) 5,000 unit 07/18/20 15:00 07/20/20 06:42 Heparin Sodium,Porcine 5,000 Unit/Ml Vial SUBCUT 5,000 unit Q8H ALFREDO Administration Doxycycline Hyclate 100 mg/ 250 mls @ 166.67 mls/hr 07/18/20 16:30 07/20/20 08:59 Sodium Chloride IV Infused BID@0630,1630 ALFREDO Infusion Ceftriaxone Sodium 1 gm/ 50 mls @ 100 mls/hr 07/19/20 02:00 07/20/20 03:03 Sodium Chloride IV Infused Q12H ALFREDO Infusion Methylprednisolone Sodium Succinate 40 mg 07/18/20 17:00 07/20/20 08:30 Methylprednisolone Sod Succ 40 Mg/Ml Vial IVPUSH 40 mg QID ALFREDO Administration Pharmacy Consult 1 each 07/18/20 11:59 Consult Rx Perform Med Rec MISCELLANE ONCE PRN Consult order Home Medications Medication Instructions Recorded Confirmed Last Taken Type fluticasone propion-salmeterol 1 inh INHALATION BID 07/18/20 07/18/20 Unknown History [Wixela Inhub] tiotropium bromide [Spiriva with 1 cap INHALATION DAILY 07/18/20 07/18/20 Unknown History HandiHaler] Physical Exam Vital Signs: Vital Signs: Last Vital Signs Temp 98 F 05/05/21 06:59 Pulse 92 07/20/20 06:59 Resp 22 H 07/20/20 07:43 BP 150/70 H 07/20/20 06:59 Pulse Ox 100 07/20/20 06:59 Oxygen Flow Rate 4 07/18/20 11:54 Body Mass Index 16.2 Const: General: alert and other (Cachectic) Eyes: Pupils: Equal, round and reactive pupils present Neck: Neck: Yes normal visual inspection, Yes full ROM and Yes no lymphadenopathy Chest: Chest palpation & inspection: normal inspection of the chest Resp: Auscultation: diminished lung sounds Cardio: Rate: regular rate Rhythm: regular rhythm Heart sounds: S1 normal heart sound present and S2 normal heart sound present (Pronounced S2) GI: Palpation (GI): Soft to palpation and nontender Auscultation: normal bowel sounds : General: Yes no CVA tenderness Back/Spine/Pelvis: Back: no CVA tenderness Skin: General skin exam: rashes and/or lesions noted Neuro: Cranial nerves: Yes Equal, round and reactive pupils present Results Laboratory Findings CBC and BMP: 07/19/20 05:06 07/19/20 05:06 ABG, PT/INR, D-dimer: PT/INR, D-dimer PT 12.7 SEC (10.8-13.0) 07/19/20 05:06 INR 1.1 (0.9-1.1) 07/19/20 05:06 Abnormal lab findings: Abnormal Labs 07/18/20 07/18/20 07/18/20 12:28 13:06 13:06 RBC 4.27 L Hgb 13.0 L Hct 39.2 L Neut % (Auto) 80.4 H Lymph % (Auto) 11.4 L Lymph # (Auto) 0.8 L APTT ABG pH at Pt Temp 7.34 L ABG pCO2 at Pt Temp 66 H* ABG pCO2 (Temp Corrct 65 H* ABG pO2 at Pt Temp 157 H ABG pO2 (Temp Correct 153 H ABG HCO3 36 H VBG HCO3 Sodium 134 L Chloride 92 L Carbon Dioxide 34 H Anion Gap BUN 17 H Random Glucose 122 H 07/18/20 07/19/20 07/19/20 21:52 05:06 05:06 RBC 3.95 L Hgb 12.1 L Hct 36.1 L Neut % (Auto) 86.0 H Lymph % (Auto) 7.4 L Lymph # (Auto) 0.4 L APTT 58.2 H ABG pH at Pt Temp ABG pCO2 at Pt Temp ABG pCO2 (Temp Corrct ABG pO2 at Pt Temp ABG pO2 (Temp Correct ABG HCO3 VBG HCO3 33 H Sodium Chloride Carbon Dioxide Anion Gap BUN Random Glucose 07/19/20 07/19/20 07/19/20 05:06 05:07 10:06 RBC Hgb Hct Neut % (Auto) Lymph % (Auto) Lymph # (Auto) APTT ABG pH at Pt Temp ABG pCO2 at Pt Temp 59 H ABG pCO2 (Temp Corrct ABG pO2 at Pt Temp 33 L* ABG pO2 (Temp Correct ABG HCO3 36 H VBG HCO3 32 H Sodium Chloride Carbon Dioxide 33 H Anion Gap 11 L BUN 18 H Random Glucose 141 H 07/19/20 10:06 RBC Hgb Hct Neut % (Auto) Lymph % (Auto) Lymph # (Auto) APTT ABG pH at Pt Temp ABG pCO2 at Pt Temp ABG pCO2 (Temp Corrct ABG pO2 at Pt Temp ABG pO2 (Temp Correct ABG HCO3 VBG HCO3 36 H Sodium Chloride Carbon Dioxide Anion Gap BUN Random Glucose Microbiology: Microbiology 07/18/20 14:14 Blood - Venous Blood Culture - Preliminary No growth after 24 hours. 07/18/20 13:06 Blood - Venous Blood Culture - Preliminary No growth after 24 hours. Assessment and Plan (1) Acute on chronic respiratory failure with hypoxia and hypercapnia: Status: Acute (2) Acute exacerbation of chronic obstructive airways disease: Status: Acute (3) Hypoxia: Status: Acute The patient is presenting with acute on chronic hypercarbic respiratory failure due to his COPD. His COPD is very advancing carries a poor prognosis as well as high risk for readmissions to the hospital. He has been on BiPAP for still demonstrating degree of hypercarbia and still on high oxygen requirements. Therefore. The patient does need to go on a noninvasive ventilator that provide better gas exchange, decrease hospitalizations and improve his progn osis. -Continue nebulized therapy -nocturnal noninvasive ventilation -oxygen supplementation to maintain a pulse ox between 89-95%. The patient will require outpatient follow-up with Pulmonary. Further recommendations based on forthcoming data
--- NOTE | 2020-07-20 10:59 | MHC.CM.PN ---
CM met with Patient and his /HCP at bedside and addressed IMM, providing Patient with the original and placing a copy on the chart.Patient lives with his , has [employer] for O2, and required no DME [employer]. Home with a new referral to [facility] is Patient's goal but he will consider STR @ [facility] [place] if STR is recommended. SHELLEY has initiated and will follow for dc planning.
--- NOTE | 2020-07-20 12:45 | P.PNIM_ITS ---
Subjective Subjective Date of Service: 07/20/20 Interval History: The patient was seen and evaluated this morning Laying in bed, feels comfortable overall but still on high-flow oxygen Denies any fever, chills or shortness of breath at this point in mild respiratory distress with exertion No reported other overnight events. Systemic review: No fever, chills but generalized weakness No chest pain, palpitation Dyspnea on exertion and minimal coughing No abdominal pain, nausea or vomiting No urinary symptoms No any rash or wounds Physical Exam Vital Signs: Vital Signs: Last Vital Signs Temp 96.8 F 07/20/20 11:03 Pulse 82 07/20/20 11:29 Resp 19 07/20/20 11:03 BP 120/83 07/20/20 11:03 Pulse Ox 98 07/20/20 11:03 Oxygen Flow Rate 4 07/18/20 11:54 Body Mass Index 35.8 Const: Other: Constitutional : Alert, oriented, not in distress Neck : Normal inspection, Supple Cardiovascular : RRR, S1 S2, no lower extremity edema Respiratory : Significantly decreased air movement, no crackles, wheezes or rhonchi Gastrointestinal: soft, lax, Normal bowel sounds, Non tender Skin : Warm/Dry, No rash Neurological : Alert & oriented x3, No focal deficit Objective Data Current Medications Generic Name Dose Route Start Last Admin Trade Name Freq PRN Reason Stop Dose Admin Albuterol/Ipratropium 3 ml 07/18/20 20:15 07/20/20 11:26 Albuterol/Iprat 2.5/0.5mg 3 Ml Ampul.Neb INHALE 3 ml RQ4H ALFREDO Administration Famotidine 20 mg 07/18/20 21:00 07/20/20 08:30 Famotidine/Pf 20 Mg/2 Ml Vial IVPUSH 20 mg BID ALFREDO Administration Heparin Sodium (Porcine) 5,000 unit 07/18/20 15:00 07/20/20 06:42 Heparin Sodium,Porcine 5,000 Unit/Ml Vial SUBCUT 5,000 unit Q8H ALFREDO Administration Doxycycline Hyclate 100 mg/ 250 mls @ 166.67 mls/hr 07/18/20 16:30 07/20/20 08:59 Sodium Chloride IV Infused BID@0630,1630 ALFREDO Infusion Ceftriaxone Sodium 1 gm/ 50 mls @ 100 mls/hr 07/19/20 02:00 07/20/20 03:03 Sodium Chloride IV Infused Q12H ALFREDO Infusion Methylprednisolone Sodium Succinate 40 mg 07/18/20 17:00 07/20/20 08:30 Methylprednisolone Sod Succ 40 Mg/Ml Vial IVPUSH 40 mg QID [facility] Administration Pharmacy Consult 1 each 07/18/20 11:59 Consult Rx Perform Med Rec MISCELLANE ONCE PRN Consult order Labs CBC & Chem 7: 07/19/20 05:06 07/19/20 05:06 Microbiology Microbiology Results: Microbiology 07/18/20 14:14 Blood - Venous Blood Culture - Preliminary No growth after 24 hours. 07/18/20 13:06 Blood - Venous Blood Culture - Preliminary No growth after 24 hours. Assessment and Plan (1) Acute on chronic respiratory failure with hypoxia and hypercapnia: Status: Acute (2) Acute exacerbation of chronic obstructive airways disease: Status: Acute (3) Community acquired pneumonia: Status: Acute (4) Failure to thrive in adult: Status: Acute Assessment and Plan: A 80 years old male with PMH of COPD, history of smoking who presented to the hospital with acute on chronic respiratory failure. Acute on chronic hypoxic hypercapnic respiratory failure Secondary to COPD exacerbation Continue nebulized bronchodilators ATC p.r.n. G use BiPAP at bedtime Decrease IV steroids to b.i.d. for Wean oxygen down as tolerated Pulmonology input appreciated, will need to go on noninvasive ventilator at time of discharge Community-acquired pneumonia Cultures negative Continue IV doxycycline and ceftriaxone Failure to thrive To get nutritional support Add Ensure DVT PPX Heparin
[2020-07-21] VITALS (9 sets, daily range): BP systolic 112–167; BP diastolic 72–90; PULSE 82–95; RESP 18–20; TEMP 36.2–36.9; O2SAT 93–99; BMI 15.0
[2020-07-21] MEDS: Heparin Sodium,Porcine 5,000 UNIT/ML VIAL 5000 UNIT SUBCUT ×4 (00:12→23:01)
[2020-07-21] MEDS: cefTRIAXone sodium 1 GM in 0.9 % Sodium Chloride 50 ML IV ×2 (02:05→14:11)
[2020-07-21] MEDS: Doxycycline Hyclate 100 MG in 0.9 % Sodium Chloride 250 ML 250 MG IV (05:42)
[2020-07-21 06:49] LABS: Hematocrit 35.2 % (42-52); Hemoglobin 12.1 g/dl (14.0-18.0); Mean Corpuscular HGB Conc 34.4 g/dl (31.0-36.0); Mean Corpuscular Hemoglobin 31.2 pg (27.0-33.0); Mean Corpuscular Volume 90.7 fL (80-98); Mean Platelet Volume 10.2 fL (9.4-12.4); Platelet Count 319 X10*3/uL (160-400); Red Blood Count 3.88 X10*6/uL (4.60-5.80); Red Cell Distribution Width 13.2 % (11.0-16.0); White Blood Count 9.1 X10*3/uL (4.8-10.8)
[2020-07-21 06:55] LABS: Anion Gap 14 (12-20); Blood Urea Nitrogen 20 mg/dL (9-16); Calcium 8.6 mg/dL (8.4-10.2); Carbon Dioxide 32 mmol/L (22-29); Chloride 94 mmol/L (96-108); Creatinine Clr Calc Pharmacy 64.3; Estimated Glomerular Filt Rate > 60; Glucose Random 93 mg/dL (60-115); Potassium 3.9 mmol/L (3.3-5.1); Sodium 136 mmol/L (135-145)
[2020-07-21] MEDS: Albuterol/Iprat 2.5/0.5MG 3 ML AMPUL.NEB INHALE ×3 (07:29→19:46)
[2020-07-21] MEDS: Famotidine/PF 20 MG/2 ML VIAL IVPUSH ×2 (08:11→21:23)
--- NOTE | 2020-07-21 09:24 | P.CDIC_ITS ---
CDI Concurrent Query Service Date: 07/21/20 Documentation Clarification: Please clarify if you are treating a proba ble/suspected/likely or confirmed: Mild Protein Calorie Malnutrition Moderate Protein Calorie Malnutrition Severe Protein Calorie Malnutrition Provider Response: Moderate Protein-Calorie Malnutrition PLEASE DO NOT DELETE/MODIFY EXISTING CONTENT Additional information is needed in order to code to the highest accuracy and appropriate Severity of Illness (SOI). Please clarify the information noted below in your progress notes and discharge summary. Risk Factors/Clinical Indicators/Treatments 80 year old male admitted with Acute Exacerbation COPD, Acute on Chronic Respiratory Failure with Hypoxia and Hypercapnia HT 5'9, WT 46.3 kg, BMI 15.1 Per MD note 07/20/20 FTT, Add Ensure Nutrition Assessment 07/19/20: IBW 160 Underweight, regular diet, mild depletion orbital body fat, moderate depletion clavicle muscle mass, malnutrition CDS: Martha Napoles RN Contact Number: [phone] Please Review the information above and exercise your independent professional judgment in responding to the query. If you concur, pleas document in the PROGRESS NOTES and DISCHARGE SUMMARY. If you do not agree with the query, please document in the query above. THIS QUERY IS PART OF THE PERMANENT MEDICAL RECORD
--- NOTE | 2020-07-21 10:19 | MHC.CLN ---
F/U PT IS MODERATELY MALNOURISHED PT WITH MILDLY DEPLETED SUBCUTANEOUS FAT WITH MODERATELY DEPLETED MUSCLE MASS, BMI 16 WT TYPICALLY BELOW IBW RANGE PER PT; NO SIGNIFICANT WT CHANGE PO INTAKE 75-100% DIET RX: REGULAR-APPROPRIATE PT RECEIVING ENSURE BID (PT PREFERS VANILLA) TO INCREASE KCALS SUPPLEMENT TO PROVIDE 700KCALS, 40G PROTEIN MONITOR PO INTAKE CLOSELY
[2020-07-21] MEDS: methylPREDNISolone Sod Succ 40 MG/ML VIAL IVPUSH ×2 (11:09→21:23)
[2020-07-21] MEDS: guaiFENesin LA 600 MG TAB.ER.12H PO ×2 (11:09→21:21)
--- NOTE | 2020-07-21 13:51 | MHC.CM.PN ---
CM met with Patient's /Adamaris, who had questions regarding appropriate dc settings for her (she was asking about [facility] in [place] rather than the PT recommended SNF (like [facility]which would be Patient's first choice SNF). Adamaris also stated that she feels Patient is nearing the end. SHELLEY has arranged for Patient/Adamaris and MD to discuss Patient's care needs tomorrow at bedside, at 9AM-(MD aware and agreeable). SHELLEY will continue to follow for dc planning.
--- NOTE | 2020-07-21 14:57 | HO.PM.IMPN ---
Subjective Subjective Date of Service: 07/21/20 Interval History: The patient was seen and evaluated this morning Laying in bed, feels comfortable overall but still on high-flow oxygen Denies any fever, chills or shortness of breath at this point in mild respiratory distress with exertion No reported other overnight events. Systemic review: No fever, chills but generalized weakness No chest pain, palpitation Dyspnea on exertion and minimal coughing No abdominal pain, nausea or vomiting No urinary symptoms No any rash or wounds Physical Exam Vital Signs: Vital Signs: Last Vital Signs Temp 97.1 F 07/21/20 11:41 Pulse 90 07/21/20 11:41 Resp 20 07/21/20 11:41 BP 112/72 07/21/20 11:41 Pulse Ox 99 07/21/20 11:41 Oxygen Flow Rate 4 07/18/20 11:54 Body Mass Index 15.0 Const: Other: Constitutional : Alert, oriented, not in distress Neck : Normal inspection, Supple Cardiovascular : RRR, S1 S2, no lower extremity edema Respiratory : Significantly decreased air movement, no crackles, wheezes or rhonchi Gastrointestinal: soft, lax, Normal bowel sounds, Non tender Skin : Warm/Dry, No rash Neurological : Alert & oriented x3, No focal deficit Objective Data Current Medications Generic Name Dose Route Start Last Admin Trade Name Freq PRN Reason Stop Dose Admin Albuterol/Ipratropium 3 ml 07/18/20 20:15 07/21/20 11:05 Albuterol/Iprat 2.5/0.5mg 3 Ml Ampul.Neb INHALE 3 ml RQ4H ALFREDO Administration Famotidine 20 mg 07/18/20 21:00 07/21/20 08:11 Famotidine/Pf 20 Mg/2 Ml Vial IVPUSH 20 mg BID ALFREDO Administration Guaifenesin 600 mg 07/21/20 10:45 07/21/20 11:09 Guaifenesin La 600 Mg Tab.Er.12h PO 600 mg BID ALFREDO Administration Heparin Sodium (Porcine) 5,000 unit 07/18/20 15:00 07/21/20 14:10 Heparin Sodium,Porcine 5,000 Unit/Ml Vial SUBCUT 5,000 unit Q8H ALFREDO Administration Doxycycline Hyclate 100 mg/ 250 mls @ 166.67 mls/hr 07/18/20 16:30 07/21/20 07:10 Sodium Chloride IV Infused BID@0630,1630 AL[facility]O Infusion Ceftriaxone Sodium 1 gm/ 50 mls @ 100 mls/hr 07/19/20 02:00 07/21/20 14:43 Sodium Chloride IV Infused Q12H ALFR[facility]O Infusion Methylprednisolone Sodium Succinate 40 mg 07/20/20 22:00 07/21/20 11:09 Methylprednisolone Sod Succ 40 Mg/Ml Vial IVPUSH 40 mg BID@1000,2200 [facility] Administration Pharmacy Consult 1 each 07/18/20 11:59 Consult Rx Perform Med Rec MISCELLANE ONCE PRN Consult order Labs CBC & Chem 7: 07/21/20 05:25 07/21/20 05:25 Microbiology Microbiology Results: Microbiology 07/18/20 14:14 Blood - Venous Blood Culture - Preliminary No growth after 48 hours. 07/18/20 13:06 Blood - Venous Blood Culture - Preliminary No growth after 48 hours. Assessment and Plan (1) Acute on chronic respiratory failure with hypoxia and hypercapnia: Status: Acute (2) Acute exacerbation of chronic obstructive airways disease: Status: Acute (3) Community acquired pneumonia: Status: Acute (4) Failure to thrive in adult: Status: Acute Assessment and Plan: A 80 years old male with PMH of COPD, history of smoking who presented to the hospital with acute on chronic respiratory failure. Acute on chronic hypoxic hypercapnic respiratory failure Secondary to COPD exacerbation Continue nebulized bronchodilators ATC p.r.n. use BiPAP at bedtime Decrease IV steroids to b.i.d. Wean oxygen down as tolerated Pulmonology input appreciated, will need to go on noninvasive ventilator at time of discharge Community-acquired pneumonia Cultures negative Continue IV doxycycline and ceftriaxone Failure to thrive Moderate Protein Calorie Malnutrition To get nutritional support Add Ensure DVT PPX Heparin
[2020-07-21] MEDS: Doxycycline Hyclate 100 MG in 0.9 % Sodium Chloride 250 ML 166.67 MG IV (16:13)
[2020-07-22] VITALS (9 sets, daily range): BP systolic 110–163; BP diastolic 57–92; PULSE 78–107; RESP 16–30; TEMP 36.2–37; O2SAT 94–100
[2020-07-22] MEDS: cefTRIAXone sodium 1 GM in 0.9 % Sodium Chloride 50 ML IV ×2 (01:51→15:32)
[2020-07-22] MEDS: Heparin Sodium,Porcine 5,000 UNIT/ML VIAL 5000 UNIT SUBCUT ×3 (06:14→23:51)
[2020-07-22] MEDS: Doxycycline Hyclate 100 MG in 0.9 % Sodium Chloride 250 ML 166.67 MG IV ×2 (06:16→16:21)
[2020-07-22 06:51] LABS: Hematocrit 37.2 % (42-52); Hemoglobin 12.4 g/dl (14.0-18.0); Mean Corpuscular HGB Conc 33.3 g/dl (31.0-36.0); Mean Corpuscular Hemoglobin 30.2 pg (27.0-33.0); Mean Corpuscular Volume 90.5 fL (80-98); Mean Platelet Volume 10.1 fL (9.4-12.4); Platelet Count 346 X10*3/uL (160-400); Red Blood Count 4.11 X10*6/uL (4.60-5.80); Red Cell Distribution Width 12.9 % (11.0-16.0); White Blood Count 8.9 X10*3/uL (4.8-10.8)
[2020-07-22 07:14] LABS: Anion Gap 14 (12-20); Blood Urea Nitrogen 17 mg/dL (9-16); Calcium 8.9 mg/dL (8.4-10.2); Carbon Dioxide 32 mmol/L (22-29); Chloride 94 mmol/L (96-108); Creatinine Clr Calc Pharmacy 60.3; Estimated Glomerular Filt Rate > 60; Glucose Random 94 mg/dL (60-115); Potassium 4.5 mmol/L (3.3-5.1); Sodium 135 mmol/L (135-145)
[2020-07-22] MEDS: methylPREDNISolone Sod Succ 40 MG/ML VIAL IVPUSH (10:12)
[2020-07-22] MEDS: guaiFENesin LA 600 MG TAB.ER.12H PO ×2 (10:12→20:12)
[2020-07-22] MEDS: Famotidine/PF 20 MG/2 ML VIAL IVPUSH ×2 (10:12→20:13)
--- NOTE | 2020-07-22 11:15 | MHC.CLN ---
F/U PO INTAKE 75% AVG DIET RX: REGULAR-APPROPRIATE PT RECEIVING ENSURE BID (PT PREFERS VANILLA) TO INCREASE KCALS SUPPLEMENT TO PROVIDE 700KCALS, 40G PROTEIN CONTINUE TO MONITOR PO INTAKE CLOSELY
[2020-07-22] MEDS: Albuterol/Iprat 2.5/0.5MG 3 ML AMPUL.NEB INHALE ×3 (11:40→19:32)
--- NOTE | 2020-07-22 12:31 | MHC.CM.PN ---
met with pt and his who have met with hospice they do not feel home with hosp[facility] thru [facility] as said during rounds possible dc this weeekend
--- NOTE | 2020-07-22 15:08 | W.MHC.ACPN ---
Advanced Care Planning Note Advanced Care Planning Note Discussed with: patient and family member(s) Time spent (in minutes): 20 Narrative: I had a chance to meet with the patient and his at the bedside this morning to discuss his ongoing medical problems and goals of care. Patient has been admitted to the hospital with advanced end-stage COPD and chronic respiratory failure requiring oxygen supplement. His physical strength went down over the last few months and he has been deconditioned with a concern of going back home at the current level of activity as his also has medical issues and she is worried about taking care of him or having difficulties at home. I discussed the nature of disease with the family explaining to them that improvement is very unlikely at this stage and a were goal is to preserve his pulmonary function at the current level or improved a little bit. We discussed options about going to rehab versus going back home with physical therapy or doing hospice care. We discussed as well code status and explained to both of them the CPR and intubation process. They agreed to speak with hospice care about possibility of going back home on hospice. To do physical therapy today to assess his need to go to rehab facility. The patient will think about code status discussion as he remains a full code at this stage. Problems Discussed (1) Acute on chronic respiratory failure with hypoxia and hypercapnia: (2) Acute exacerbation of chronic obstructive airways disease: (3) Community acquired pneumonia: (4) Failure to thrive in adult:
--- NOTE | 2020-07-22 15:11 | P.PNIM_ITS ---
Subjective Subjective Date of Service: 07/22/20 Interval History: The patient was seen and evaluated this morning Laying in bed, feels comfortable overall but still on 3 L of oxygen Denies any fever, chills or shortness of breath Feels stable sitting down but reported mild respiratory distress with exertion No reported other overnight events. Systemic review: No fever, chills but generalized weakness No chest pain, palpitation Dyspnea on exertion and minimal coughing No abdominal pain, nausea or vomiting No urinary symptoms No any rash or wounds Physical Exam Vital Signs: Vital Signs: Last Vital Signs Temp 98.0 F 07/22/20 11:50 Pulse 85 07/22/20 11:50 Resp 22 H 07/22/20 11:50 BP 139/88 07/22/20 11:50 Pulse Ox 100 07/22/20 11:50 Oxygen Flow Rate 4 07/18/20 11:54 Body Mass Index 15.0 Const: Other: Constitutional : Alert, oriented, not in distress Neck : Normal inspection, Supple Cardiovascular : RRR, S1 S2, no lower extremity edema Respiratory : Significantly decreased air movement, no crackles, wheezes or rhonchi Gastrointestinal: soft, lax, Normal bowel sounds, Non tender Skin : Warm/Dry, No rash Neurological : Alert & oriented x3, No focal deficit Objective Data Current Medications Generic Name Dose Route Start Last Admin Trade Name Freq PRN Reason Stop Dose Admin Albuterol/Ipratropium 3 ml 07/18/20 20:15 07/22/20 11:40 Albuterol/Iprat 2.5/0.5mg 3 Ml Ampul.Neb INHALE 3 ml RQ4H ALFREDO Administration Famotidine 20 mg 07/18/20 21:00 07/22/20 10:12 Famotidine/Pf 20 Mg/2 Ml Vial IVPUSH 20 mg BID ALFREDO Administration Guaifenesin 600 mg 07/21/20 10:45 07/22/20 10:12 Guaifenesin La 600 Mg Tab.Er.12h PO 600 mg BID ALFREDO Administration Heparin Sodium (Porcine) 5,000 unit 07/18/20 15:00 07/22/20 06:14 Heparin Sodium,Porcine 5,000 Unit/Ml Vial SUBCUT 5,000 unit Q8H ALFREDO Administration Doxycycline Hyclate 100 mg/ 250 mls @ 166.67 mls/hr 07/18/20 16:30 07/22/20 07:51 Sodium Chloride IV Infused BID@0630,1630 [facility] Infusion Ceftriaxone Sodium 1 gm/ 50 mls @ 100 mls/hr 07/19/20 02:00 07/22/20 02:24 Sodium Chloride IV Infused Q12H ALFREDO Infusion Methylprednisolone Sodium Succinate 40 mg 07/20/20 22:00 07/22/20 10:12 Methylprednisolone Sod Succ 40 Mg/Ml Vial IVPUSH 40 mg BID@1000,2200 [facility] Administration Pharmacy Consult 1 each 07/18/20 11:59 Consult Rx Perform Med Rec MISCELLANE ONCE PRN Consult order Labs CBC & Chem 7: 07/22/20 06:13 07/22/20 06:13 Microbiology Microbiology Results: Microbiology 07/18/20 14:14 Blood - Venous Blood Culture - Preliminary No growth after 48 hours. 07/18/20 13:06 Blood - Venous Blood Culture - Preliminary No growth after 48 hours. Assessment and Plan (1) Acute on chronic respiratory failure with hypoxia and hypercapnia: Status: Acute (2) Acute exacerbation of chronic obstructive airways disease: Status: Acute (3) Community acquired pneumonia: Status: Acute (4) Failure to thrive in adult: Status: Acute Assessment and Plan: A 80 years old male with PMH of COPD, history of smoking who presented to the hospital with acute on chronic respiratory failure. Acute on chronic hypoxic hypercapnic respiratory failure Secondary to COPD exacerbation Continue nebulized bronchodilators ATC p.r.n. use BiPAP at bedtime Decrease IV steroids to p.o. daily Wean oxygen down as tolerated Pulmonology input appreciated, needs noninvasive ventilator at time of discharge which were working on Community-acquired pneumonia Cultures negative Continue IV doxycycline and ceftriaxone day 5 Failure to thrive Moderate Protein Calorie Malnutrition Add Ensure Physical deconditioning to do physical therapy evaluation Constipation Add MiraLax DVT PPX Heparin
[2020-07-22] MEDS: polyethylene glycoL 3350 17 GM POWD.PACK PO (15:32)
[2020-07-23] VITALS (12 sets, daily range): BP systolic 124–172; BP diastolic 70–89; PULSE 81–95; RESP 16–20; TEMP 36.2–36.8; O2SAT 94–99; BMI 20.6
[2020-07-23] MEDS: cefTRIAXone sodium 1 GM in 0.9 % Sodium Chloride 50 ML IV (02:35)
--- NOTE | 2020-07-23 03:16 | PC.NURSE ---
p - pt has refused bipap overnight despite education to improve breathing and decrease co2 retention. i - continue to offer bipap and education and reinforce. e -will continue to monitor
[2020-07-23] MEDS: Doxycycline Hyclate 100 MG in 0.9 % Sodium Chloride 250 ML 166.67 MG IV (05:50)
[2020-07-23] MEDS: Heparin Sodium,Porcine 5,000 UNIT/ML VIAL 5000 UNIT SUBCUT ×3 (05:50→23:24)
--- NOTE | 2020-07-23 06:34 | PC.NURSE ---
educated pt this am regarding pulmonary MD recommendation for bipap at night-time with sleep to help blow off extra CO2, pt states he may try it tonight but also states he wants to talk to the MD about it. Will pass on in report for next shift to follow up. also educated pt on pulmonary md recommendation to titrate O2 to maintain sats 89-95%. pt aware of overnight successful titration of O2 from 3L n/c to 1L n/c with sat 92-95% at rest. brief titration with oob to bsc to 2L with enc of pursed lip breathing, i.e., smelling o2 & exhale through mouth, pt returns demo. sob with activity. o2 returned to 1L nc & 95% sat noted. with back to bed.
[2020-07-23 07:00] LABS: Anion Gap 11 (12-20); Blood Urea Nitrogen 19 mg/dL (9-16); Carbon Dioxide 35 mmol/L (22-29); Chloride 94 mmol/L (96-108); Creatinine Clr Calc Pharmacy 83.9; Estimated Glomerular Filt Rate > 60; Glucose Random 76 mg/dL (60-115); Sodium 136 mmol/L (135-145)
[2020-07-23] MEDS: predniSONE 20 MG TABLET 40 MG PO (07:37)
[2020-07-23] MEDS: Famotidine/PF 20 MG/2 ML VIAL IVPUSH ×2 (07:37→20:14)
[2020-07-23] MEDS: guaiFENesin LA 600 MG TAB.ER.12H PO ×2 (07:38→20:15)
[2020-07-23] MEDS: Albuterol/Iprat 2.5/0.5MG 3 ML AMPUL.NEB INHALE ×3 (07:43→23:55)
--- NOTE | 2020-07-23 13:29 | HO.PM.IMPN ---
Subjective Subjective Date of Service: 07/23/20 Interval History: The patient was seen and evaluated this morning Laying in bed, feels comfortable overall but still on 3 L of oxygen Denies any fever, chills or shortness of breath Feels stable sitting down but reported mild respiratory distress with exertion No reported other overnight events. Systemic review: No fever, chills but generalized weakness No chest pain, palpitation Dyspnea on exertion and minimal coughing No abdominal pain, nausea or vomiting No urinary symptoms No any rash or wounds Physical Exam Vital Signs: Vital Signs: Last Vital Signs Temp 97.5 F 07/23/20 11:58 Pulse 95 07/23/20 11:58 Resp 20 07/23/20 11:58 BP 124/82 07/23/20 11:58 Pulse Ox 99 07/23/20 11:58 Oxygen Flow Rate 4 07/18/20 11:54 Body Mass Index 20.6 Const: Other: Constitutional : Alert, oriented, not in distress Neck : Normal inspection, Supple Cardiovascular : RRR, S1 S2, no lower extremity edema Respiratory : Significantly decreased air movement, no crackles, wheezes or rhonchi Gastrointestinal: soft, lax, Normal bowel sounds, Non tender Skin : Warm/Dry, No rash Neurological : Alert & oriented x3, No focal deficit Objective Data Current Medications Generic Name Dose Route Start Last Admin Trade Name Juan Mq PRN Reason Stop Dose Admin Albuterol/Ipratropium 3 ml 07/18/20 20:15 07/23/20 11:07 Albuterol/Iprat 2.5/0.5mg 3 Ml Ampul.Neb INHALE Not Given RQ4H ALFREDO Cefuroxime Axetil 500 mg 07/23/20 08:00 07/23/20 09:07 Cefuroxime Axetil 500 Mg Tablet PO 500 mg Q12H ALFREDO Administration Doxycycline Hyclate 100 mg 07/23/20 08:00 07/23/20 09:07 Doxycycline Hyclate 100 Mg Tablet PO 100 mg Q12H ALFREDO Administration Famotidine 20 mg 07/18/20 21:00 07/23/20 07:37 Famotidine/Pf 20 Mg/2 Ml Vial IVPUSH 20 mg BID ALFREDO Administration Guaifenesin 600 mg 07/21/20 10:45 07/23/20 07:38 Guaifenesin La 600 Mg Tab.Er.12h PO 600 mg BID ALFREDO Administration Heparin Sodium (Porcine) 5,000 unit 07/18/20 15:00 07/23/20 05:50 Heparin Sodium,Porcine 5,000 Unit/Ml Vial SUBCUT 5,000 unit Q8H [facility] Administration Pharmacy Consult 1 each 07/18/20 11:59 Consult Rx Perform Med Rec MISCELLANE ONCE PRN Consult order Prednisone 40 mg 07/23/20 09:00 07/23/20 07:37 Prednisone 20 Mg Tablet PO 40 mg DAILY [facility] Administration Labs CBC & Chem 7: 07/22/20 06:13 07/23/20 05:58 Microbiology Microbiology Results: Microbiology 07/18/20 14:14 Blood - Venous Blood Culture - Preliminary No growth after 48 hours. 07/18/20 13:06 Blood - Venous Blood Culture - Preliminary No growth after 48 hours. Assessment and Plan (1) Acute on chronic respiratory failure with hypoxia and hypercapnia: Status: Acute (2) Acute exacerbation of chronic obstructive airways disease: Status: Acute (3) Community acquired pneumonia: Status: Acute (4) Failure to thrive in adult: Status: Acute Assessment and Plan: A 80 years old male with PMH of COPD, history of smoking who presented to the hospital with acute on chronic respiratory failure. Acute on chronic hypoxic hypercapnic respiratory failure Secondary to COPD exacerbation Continue nebulized bronchodilators ATC p.r.n. use BiPAP at bedtime Continue p.o. prednisone, to wean down as tolerated Wean oxygen down as tolerated Pulmonology input appreciated, needs noninvasive ventilator at time of discharge which were working on Community-acquired pneumonia Cultures negative Discontinue IV doxycycline and ceftriaxone day 5 Start oral doxycycline and Ceftin day 1 Failure to thrive Moderate Protein Calorie Malnutrition Add Ensure Physical deconditioning physical therapy evaluation recommended short-term rehab, looking for placement Constipation Add MiraLax DVT PPX Heparin
[2020-07-24] VITALS (10 sets, daily range): BP systolic 120–160; BP diastolic 70–98; PULSE 82–99; RESP 15–22; TEMP 36.2–36.7; O2SAT 90–98
[2020-07-24] MEDS: Heparin Sodium,Porcine 5,000 UNIT/ML VIAL 5000 UNIT SUBCUT ×3 (05:38→22:57)
[2020-07-24] MEDS: Famotidine/PF 20 MG/2 ML VIAL IVPUSH ×2 (07:24→20:39)
[2020-07-24] MEDS: predniSONE 20 MG TABLET 40 MG PO (07:25)
[2020-07-24] MEDS: guaiFENesin LA 600 MG TAB.ER.12H PO ×2 (07:25→20:39)
[2020-07-24] MEDS: Albuterol/Iprat 2.5/0.5MG 3 ML AMPUL.NEB INHALE ×4 (07:33→20:25)
--- NOTE | 2020-07-24 14:20 | HO.PM.IMPN ---
Subjective Subjective Date of Service: 07/24/20 Interval History: The patient was seen and evaluated this morning Laying in bed, feels comfortable overall but still on 2-3 L of oxygen Denies any fever, chills or shortness of breath Feels stable sitting down but reported significant respiratory distress with exertion No reported other overnight events. Systemic review: No fever, chills but generalized weakness No chest pain, palpitation Dyspnea on exertion and minimal coughing No abdominal pain, nausea or vomiting No urinary symptoms No any rash or wounds Physical Exam Vital Signs: Vital Signs: Last Vital Signs Temp 97.7 F 07/24/20 12:00 Pulse 99 07/24/20 12:00 Resp 20 07/24/20 12:00 BP 133/89 07/24/20 12:00 Pulse Ox 97 07/24/20 12:00 Oxygen Flow Rate 4 07/18/20 11:54 Body Mass Index 20.6 Const: Other: Constitutional : Alert, oriented, not in distress Neck : Normal inspection, Supple Cardiovascular : RRR, S1 S2, no lower extremity edema Respiratory : Significantly decreased air movement, no crackles, wheezes or rhonchi Gastrointestinal: soft, lax, Normal bowel sounds, Non tender Skin : Warm/Dry, No rash Neurological : Alert & oriented x3, No focal deficit Objective Data Current Medications Generic Name Dose Route Start Last Admin Trade Name Freq PRN Reason Stop Dose Admin Albuterol/Ipratropium 3 ml 07/18/20 20:15 07/24/20 11:15 Albuterol/Iprat 2.5/0.5mg 3 Ml Ampul.Neb INHALE 3 ml RQ4H ALFREDO Administration Cefuroxime Axetil 500 mg 07/23/20 08:00 07/24/20 07:24 Cefuroxime Axetil 500 Mg Tablet PO 500 mg Q12H ALFREDO Administration Doxycycline Hyclate 100 mg 07/23/20 08:00 07/24/20 07:25 Doxycycline Hyclate 100 Mg Tablet PO 100 mg Q12H ALFREDO Administration Famotidine 20 mg 07/18/20 21:00 07/24/20 07:24 Famotidine/Pf 20 Mg/2 Ml Vial IVPUSH 20 mg BID ALFREDO Administration Guaifenesin 600 mg 07/21/20 10:45 07/24/20 07:25 Guaifenesin La 600 Mg Tab.Er.12h PO 600 mg BID ALFREDO Administration Heparin Sodium (Porcine) 5,000 unit 07/18/20 15:00 07/24/20 05:38 Heparin Sodium,Porcine 5,000 Unit/Ml Vial SUBCUT 5,000 unit Q8H ALFREDO Administration Pharmacy Consult 1 each 07/18/20 11:59 Consult Rx Perform Med Rec MISCELLANE ONCE PRN Consult order Prednisone 40 mg 07/23/20 09:00 07/24/20 07:25 Prednisone 20 Mg Tablet PO 40 mg DAILY ALFREOD Administration Labs CBC & Chem 7: 07/22/20 06:13 07/23/20 05:58 Microbiology Microbiology Results: Microbiology 07/18/20 14:14 Blood - Venous Blood Culture - Final No growth after 5 days. 07/18/20 13:06 Blood - Venous Blood Culture - Final No growth after 5 days. Assessment and Plan (1) Acute on chronic respiratory failure with hypoxia and hypercapnia: Status: Acute (2) Acute exacerbation of chronic obstructive airways disease: Status: Acute (3) Community acquired pneumonia: Status: Acute (4) Failure to thrive in adult: Status: Acute Assessment and Plan: A 80 years old male with PMH of COPD, history of smoking who presented to the hospital with acute on chronic respiratory failure. Acute on chronic hypoxic hypercapnic respiratory failure Secondary to COPD exacerbation Continue nebulized bronchodilators ATC p.r.n. use BiPAP at bedtime Continue p.o. prednisone, to wean down as tolerated Wean oxygen down as tolerated Pulmonology input appreciated, needs noninvasive ventilator at time of discharge which were working on Community-acquired pneumonia Cultures negative Discontinue IV doxycycline and ceftriaxone day 5 Start oral doxycycline and Ceftin day 2 Failure to thrive Moderate Protein Calorie Malnutrition Add Ensure Physical deconditioning physical therapy evaluation recommended short-term rehab, looking for placement Constipation Add MiraLax DVT PPX Heparin
[2020-07-25 04:00] VITALS: BP 128/64; PULSE 80; RESP 18; TEMP 36.6; O2SAT 98
--- NOTE | 2020-07-25 04:23 | PC.NURSE ---
pt refused bipap.[id number]% on 2L.decreased o2 to 1L at [id number]%.
[2020-07-25] MEDS: Heparin Sodium,Porcine 5,000 UNIT/ML VIAL 5000 UNIT SUBCUT ×3 (06:06→23:35)
[2020-07-25 07:54] VITALS: BP 134/80; PULSE 84; RESP 18; TEMP 36.6; O2SAT 94
[2020-07-25] MEDS: Famotidine/PF 20 MG/2 ML VIAL IVPUSH ×2 (08:31→19:29)
[2020-07-25] MEDS: predniSONE 20 MG TABLET PO (08:31)
[2020-07-25] MEDS: guaiFENesin LA 600 MG TAB.ER.12H PO ×2 (08:31→19:29)
--- NOTE | 2020-07-25 10:55 | MHC.CLN ---
F/U PO INTAKE 50-75% AVG DIET RX: REGULAR-APPROPRIATE PT RECEIVING ENSURE BID (PT PREFERS VANILLA) TO INCREASE KCALS SUPPLEMENT TO PROVIDE 700KCALS, 40G PROTEIN CONTINUE TO MONITOR PO INTAKE AND WEIGHT CLOSELY
--- NOTE | 2020-07-25 11:30 | MHC.CM.PN ---
Per ROUNDS discussion, patient may be medically cleared for dc today to [facility] and referral to this facility has been updated in order for SNF to begin Auth process. CM will follow for possible need to adjust the dc plan.
[2020-07-25 11:53] VITALS: BP 119/77; PULSE 91; RESP 22; TEMP 36.6; O2SAT 94
[2020-07-25 15:38] VITALS: BP 116/71; PULSE 99; RESP 18; TEMP 36.8; O2SAT 95
--- NOTE | 2020-07-25 16:11 | HO.PM.IMPN ---
Subjective Subjective Date of Service: 07/25/20 Interval History: The patient was seen and evaluated this morning Laying in bed, feels comfortable on 2 L of oxygen but with that he can make it at the rehab facility Denies any fever, chills or shortness of breath Feels stable sitting down but reported significant respiratory distress with exertion No reported other overnight events. Systemic review: No fever, chills but generalized weakness No chest pain, palpitation Dyspnea on exertion and minimal coughing No abdominal pain, nausea or vomiting No urinary symptoms No any rash or wounds Physical Exam Vital Signs: Vital Signs: Last Vital Signs Temp 98.3 F 07/25/20 15:38 Pulse 99 07/25/20 15:38 Resp 18 07/25/20 15:38 BP 116/71 07/25/20 15:38 Pulse Ox 95 07/25/20 15:38 Oxygen Flow Rate 4 07/18/20 11:54 Body Mass Index 20.6 Const: Other: Constitutional : Alert, oriented, not in distress Neck : Normal inspection, Supple Cardiovascular : RRR, S1 S2, no lower extremity edema Respiratory : Clear but decreased air movement, no crackles, wheezes or rhonchi Gastrointestinal: soft, lax, Normal bowel sounds, Non tender Skin : Warm/Dry, No rash Neurological : Alert & oriented x3, No focal deficit Objective Data Current Medications Generic Name Dose Route Start Last Admin Trade Name Freq PRN Reason Stop Dose Admin Albuterol/Ipratropium 3 ml 07/18/20 20:15 07/25/20 15:21 Albuterol/Iprat 2.5/0.5mg 3 Ml Ampul.Neb INHALE Not Given RQ4H ALFREDO Cefuroxime Axetil 500 mg 07/23/20 08:00 07/25/20 08:31 Cefuroxime Axetil 500 Mg Tablet PO 500 mg Q12H ALFREDO Administration Doxycycline Hyclate 100 mg 07/23/20 08:00 07/25/20 08:31 Doxycycline Hyclate 100 Mg Tablet PO 100 mg Q12H ALFREDO Administration Famotidine 20 mg 07/18/20 21:00 07/25/20 08:31 Famotidine/Pf 20 Mg/2 Ml Vial IVPUSH 20 mg BID ALFREDO Administration Guaifenesin 600 mg 07/21/20 10:45 07/25/20 08:31 Guaifenesin La 600 Mg Tab.Er.12h PO 600 mg BID ALFREDO Administration Heparin Sodium (Porcine) 5,000 unit 07/18/20 15:00 07/25/20 14:39 Heparin Sodium,Porcine 5,000 Unit/Ml Vial SUBCUT 5,000 unit Q8H [facility] Administration Pharmacy Consult 1 each 07/18/20 11:59 Consult Rx Perform Med Rec MISCELLANE ONCE PRN Consult order Prednisone 20 mg 07/25/20 09:00 07/25/20 08:31 Prednisone 20 Mg Tablet PO 20 mg DAILY [facility] Administration Labs CBC & Chem 7: 07/22/20 06:13 07/23/20 05:58 Microbiology Microbiology Results: Microbiology 07/18/20 14:14 Blood - Venous Blood Culture - Final No growth after 5 days. 07/18/20 13:06 Blood - Venous Blood Culture - Final No growth after 5 days. Assessment and Plan (1) Acute on chronic respiratory failure with hypoxia and hypercapnia: Status: Acute (2) Acute exacerbation of chronic obstructive airways disease: Status: Acute (3) Community acquired pneumonia: Status: Acute (4) Failure to thrive in adult: Status: Acute Assessment and Plan: A 80 years old male with PMH of COPD, history of smoking who presented to the hospital with acute on chronic respiratory failure. Acute on chronic hypoxic hypercapnic respiratory failure Secondary to COPD exacerbation Continue nebulized bronchodilators ATC p.r.n. use BiPAP at bedtime Continue p.o. prednisone, to wean down as tolerated Wean oxygen down as tolerated Pulmonology input appreciated, needs noninvasive ventilator at time of discharge which were working on Community-acquired pneumonia Cultures negative Discontinue IV doxycycline and ceftriaxone day 5 Start oral doxycycline and Ceftin day 3 Failure to thrive Moderate Protein Calorie Malnutrition Add Ensure Physical deconditioning physical therapy evaluation recommended short-term rehab, looking for placement Constipation Add MiraLax DVT PPX Heparin
[2020-07-25 19:16] VITALS: BP 106/86; PULSE 95; RESP 20; TEMP 36.9; O2SAT 96
[2020-07-25 23:46] VITALS: BP 133/70; PULSE 80; RESP 19; TEMP 36.6; O2SAT 98
[2020-07-26 03:40] VITALS: BP 122/68; PULSE 77; RESP 19; TEMP 36.5; O2SAT 99
[2020-07-26 06:26] VITALS: BMI 13.9
[2020-07-26] MEDS: Heparin Sodium,Porcine 5,000 UNIT/ML VIAL 5000 UNIT SUBCUT (06:27)
[2020-07-26 07:22] VITALS: BP 170/79; PULSE 73; RESP 18; TEMP 36.2; O2SAT 99
[2020-07-26] MEDS: Famotidine/PF 20 MG/2 ML VIAL IVPUSH (08:43)
[2020-07-26] MEDS: guaiFENesin LA 600 MG TAB.ER.12H PO (08:43)
[2020-07-26] MEDS: predniSONE 20 MG TABLET PO (08:43)
[2020-07-26 08:50] VITALS: BP 147/72
[2020-07-26 11:37] VITALS: BP 146/69; PULSE 76; RESP 23; TEMP 36.3; O2SAT 98
--- NOTE | 2020-07-26 12:06 | HO.PM.IMPN ---
Subjective Subjective Date of Service: 07/26/20 Interval History: Seen in f/u for acute and chronic respiratory failure due to advanced copd with acute exacerbation Systemic review: No fever, chills but generalized weakness No chest pain, palpitation Dyspnea on exertion and minimal coughing No abdominal pain, nausea or vomiting No urinary symptoms No any rash or wounds Physical Exam Vital Signs: Vital Signs: Last Vital Signs Temp 97.4 F 07/26/20 11:37 Pulse 76 07/26/20 11:37 Resp 23 H 07/26/20 11:37 BP 146/69 H 07/26/20 11:37 Pulse Ox 98 07/26/20 11:37 Oxygen Flow Rate 4 07/18/20 11:54 Body Mass Index 13.9 Const: Other: Constitutional : Alert, oriented, not in distress Neck : Normal inspection, Supple Cardiovascular : RRR, S1 S2, no lower extremity edema Respiratory : Clear but decreased air movement, no crackles, wheezes or rhonchi Gastrointestinal: soft, lax, Normal bowel sounds, Non tender Skin : Warm/Dry, No rash Neurological : Alert & oriented x3, No focal deficit Objective Data Current Medications Generic Name Dose Route Start Last Admin Trade Name Freq PRN Reason Stop Dose Admin Cefuroxime Axetil 500 mg 07/23/20 08:00 07/26/20 08:43 Cefuroxime Axetil 500 Mg Tablet PO 500 mg Q12H ALFREDO Administration Doxycycline Hyclate 100 mg 07/23/20 08:00 07/26/20 08:43 Doxycycline Hyclate 100 Mg Tablet PO 100 mg Q12H ALFREDO Administration Famotidine 20 mg 07/18/20 21:00 07/26/20 08:43 Famotidine/Pf 20 Mg/2 Ml Vial IVPUSH 20 mg BID ALFREDO Administration Guaifenesin 600 mg 07/21/20 10:45 07/26/20 08:43 Guaifenesin La 600 Mg Tab.Er.12h PO 600 mg BID ALFREDO Administration Heparin Sodium (Porcine) 5,000 unit 07/18/20 15:00 07/26/20 06:27 Heparin Sodium,Porcine 5,000 Unit/Ml Vial SUBCUT 5,000 unit Q8H ALFREDO Administration Pharmacy Consult 1 each 07/18/20 11:59 Consult Rx Perform Med Rec MISCELLANE ONCE PRN Consult order Prednisone 20 mg 07/25/20 09:00 07/26/20 08:43 Prednisone 20 Mg Tablet PO 20 mg DAILY ALFREDO Administration Labs CBC & Chem 7: 07/22/20 06:13 07/23/20 05:58 Microbiology Microbiology Results: Microbiology 07/18/20 14:14 Blood - Venous Blood Culture - Final No growth after 5 days. 07/18/20 13:06 Blood - Venous Blood Culture - Final No growth after 5 days. Assessment and Plan (1) Acute on chronic respiratory failure with hypoxia and hypercapnia: Status: Acute (2) Acute exacerbation of chronic obstructive airways disease: Status: Acute (3) Community acquired pneumonia: Status: Acute (4) Failure to thrive in adult: Status: Acute Assessment and Plan: A 80 years old male with PMH of COPD, history of smoking who presented to the hospital with acute on chronic respiratory failure. Acute on chronic hypoxic hypercapnic respiratory failure continue Nebs Oral steroid BiPAP at night per pulmonary advise Community-acquired pneumonia--treated with IV Doxy and Cetriaxone fo5 5 days and now oral Ceftin and oral Doxy for 4 days, DC after 5 days Failure to thrive-- Moderate Protein Calorie Malnutrition Add Ensure Physical deconditioning physical therapy evaluation recommended short-term rehab, looking for placement Constipation Add MiraLax DVT PPX Heparin Dc if BiPAP can be arranged after discharge
[2020-07-26 13:01] LABS: COVID-19 Test Negative (Negative)
--- NOTE | 2020-07-26 13:08 | MHC.CM.PN ---
ins fernanda received dc booked for 3:00 to [facility] updated on bipap settings hcp complered and faxed taye named as agent left message [phone] re dc
--- NOTE | 2020-07-26 13:11 | PM.DS ---
DS: Providers Provider Date of Service: 07/27/20 Date of admission: 07/18/20 18:10 Primary care physician: Cristian Krishna Consults: 07/19/20 16:18 Consult to Pulmonology Routine Consulting Provider: Se Salcedo Reason for consultation: copd DS: Diagnosis Discharge Diagnosis (1) Acute on chronic respiratory failure with hypoxia and hypercapnia: Status: Acute (2) Acute exacerbation of chronic obstructive airways disease: Status: Acute (3) Community acquired pneumonia: Status: Acute (4) Failure to thrive in adult: Status: Acute DS: Medications Discharge Medications Home Medications: Home Medications Medication Instructions Recorded Confirmed fluticasone propion-salmeterol 1 inh INHALATION BID 07/18/20 07/18/20 [Wixela Inhub] tiotropium bromide [Spiriva with 1 cap INHALATION DAILY 07/18/20 07/18/20 HandiHaler] DS: Summary Hospital Course Hospital Course: 80-year-old male former smoker and inhaler dependent COPD with increased work of breathing chest tightness and possible chills COVID negative but never vaccinatedNo cardiovascular history not treated for hypertension Currently on BiPAP and tolerating comfortably but still feels that work of breathing is excessive with sinus tachycardia at rate 114 acute hypertension at 163/108 but when he presented by blood gas he was an acute on chronic hypoxic and hypercarbic respiratory failure and chest x-ray with very severe bilateral COPD and EKG showing right axis with right atrial dilatation and clockwise rotation consistent with probable predominant right right ventricular dysfunction Hospital course: Acute on chronic hypoxic hypercapnic respiratory failure due to COPD exacerbation that required ICU level care and required BiPAP, IV steroid and and Nebulizers. He is doing much better now. Pulmonology recommends that he be on BiPAP at night. He has been on steroid for 8 days and will in the next few days. Community-acquired pneumonia--treated with IV Doxy and Cetriaxone fo5 5 days and now oral Ceftin and oral Doxy for 4 days. Treat for total of 10 days Failure to thrive-- Moderate Protein Calorie malnutriton, he has been on Ensure Physical deconditioning physical therapy evaluation recommended short-term rehab, looking for placement To use BiPAP at night Time Spent with Patient Time attestation: Total time spent providing and/or coordinating discharge services: Discharge coordination time: Greater than 30 minutes Physical Exam Vital Signs: Vital Signs: Last Vital Signs Temp 97.4 F 07/26/20 11:37 Pulse 76 07/26/20 11:37 Resp 23 H 07/26/20 11:37 BP 146/69 H 07/26/20 11:37 Pulse Ox 98 07/26/20 11:37 Oxygen Flow Rate 4 07/18/20 11:54 Body Mass Index 13.9 General: AO X 3, no acute distress, chachectic Resp: CTA bilateral CVS: S1,S2,RRR GI: +BS, NT, no distention Skin: No rash Neuro: motor grossly intact Psych: appropriate affect DS: Data Data Completed and Pending Labs on day of discharge: Laboratory Results - last 24 hr 07/26/20 12:30 COVID-19 ([facility]ANDY) Negative COVID-19 Clin Com See Note Discharge Plan Discharge Anticipated Discharge Date/Time: 07/26/20 11:54 Patient Disposition: Xfer SNF Discharge Diagnosis: COPD exacerbation Referrals: [facility] [place] [Outside] - 1 Week Cristian Krishna [Primary Care Provider] - 1 Week Se Salcedo MD [Physician] - 1 Week Discharge Medications: New guaifenesin [Mucinex] 600 mg Tablet Extended Release 12hr 600 mg PO BID Qty: 20 RF: 0 prednisone 10 mg tablet 10 mg PO DAILY Qty: 3 RF: 0 cefuroxime axetil 500 mg Tablet 500 mg PO Q12H Qty: 2 RF: 0 doxycycline hyclate 100 mg Tablet 100 mg PO Q12H Qty: 2 RF: 0 ipratropium-albuterol 0.5 mg-3 mg(2.5 mg base)/3 mL solution for nebulization 3 ml inhalation Q6-8H PRN (Reason: shortness of breath) Qty: 90 RF: 0 Continued Spiriva with HandiHaler 18 mcg Capsule, W/Inhalation Device 1 cap INHALATION DAILY RF: 0 fluticasone propion-salmeterol [Wixela Inhub] 500-50 mcg/dose Blister With Device 1 inh INHALATION BID RF: 0 Discharge Orders: Discharge Order (Routine); Ordered 07/26/20 Ordered By: Tam Ordoñez Diet: advance to usual diet Activity on Discharge: As tolerated Stand Alone Forms: Patient Portal Discharge page Care Plan Goals: Prevent reshospitilazaion and control respirator symptoms Health Concerns: Chronic respiratory failure Plan of Treatment: Tu use bipap and inhalers as recommendated and follow up with your Doctor in a week Assessment: See above Discharge Date/Time: 07/26/20 15:12
== END 2020-07-26 15:12 | disposition skilled nursing facility (03) | DRG 190 ==
LOC: HO.ED 14:02 → HO.ICU 18:28 → HO.IMC 07-19 14:01
PROVIDERS: Physician Assistant; Student in an Organized Health Care Education/Training Program; Admitting Provider Internal Medicine Cardiovascular Disease; Emergency Provider Emergency Medicine; PCP Hospitalist; Visit Provider Internal Medicine
DX: J44.0 Chronic obstructive pulmonary disease with (acute) lower respiratory infection (principal); J96.22 Acute and chronic respiratory failure with hypercapnia; J96.21 Acute and chronic respiratory failure with hypoxia; J18.9 Pneumonia, unspecified organism; E44.0 Moderate protein-calorie malnutrition; Z68.1 Body mass index [BMI] 19.9 or less, adult; J44.1 Chronic obstructive pulmonary disease with (acute) exacerbation; Z20.822 Contact with and (suspected) exposure to COVID-19; R62.7 Adult failure to thrive; K59.00 Constipation, unspecified; Z99.81 Dependence on supplemental oxygen; Z87.891 Personal history of nicotine dependence; Z79.51 Long term (current) use of inhaled steroids; Z79.52 Long term (current) use of systemic steroids; Z79.899 Other long term (current) drug therapy
CPT/HCPCS: 36415; 71045; 80048; 80076; 81003; 83605; 83690; 83735; 83880; 84100; 84484; 85025; 85027; 85610; 85730; 87040; 87635; 93005; 94640; 94644; 94660; 94799; 96365; 96366; 96367; 96375; 97110; 97116; 97162; 97530; 99285; 99291; J0696; J2920; J2930; J3010; J3475